=== PATIENT | male | born 1960 | race Caucasian/White ===

== ENCOUNTER → 2018-09-16 | Outpatient (REF) | payer MEDICARE, OTHER ==
[~2018-09-16] MED LIST: CYCL10TA PO; FOLI1TAB11 PO; HYDR-3716 PO; KEPP250T5 PO; MILK140C PO; MUSC1CRE TOP; NAPR1TAB41 PO; OXAZ15CA4 PO; PARO20TA3 PO; THIA100T7 PO; VITMTA PO
[2018-09-16 19:26] LABS: HEMATOCRIT 40.8 % (42.0-52.0); HEMOGLOBIN 14.2 g/dl (13.5-17.5); MEAN CORPUSCULAR HEMOGLOBIN 36.5 pg (27.0-33.0); MEAN CORPUSCULAR HGB CONC 34.8 g/dl (32.0-36.5); MEAN CORPUSCULAR VOLUME 104.9 fl (80.0-96.0); PLATELET COUNT, AUTOMATED 143 10^3/uL (150-450); RED BLOOD COUNT 3.89 10^6/uL (4.30-6.10); WHITE BLOOD COUNT 4.3 10^3/uL (4.0-10.0)
[2018-09-16 19:37] LABS: HEMOGLOBIN A1c 5.3 %
[2018-09-17 07:25] LABS: ALBUMIN 4.4 GM/DL (3.2-5.2); ALT/SGPT 73 U/L (12-78); BILIRUBIN,TOTAL 1.2 MG/DL (0.2-1.0); BLOOD UREA NITROGEN 10 MG/DL (7-18); CALCIUM LEVEL 9.2 MG/DL (8.8-10.2); CARBON DIOXIDE LEVEL 26 MEQ/L (21-32); CHLORIDE LEVEL 99 MEQ/L (98-107); CHOLESTEROL LEVEL 237 MG/DL (<200); CHOLESTEROL RISK RATIO 4.937 (<5); FERRITIN 907 NG/ML (26-388); FREE T4 0.72 NG/DL (0.76-1.46); GLUCOSE, FASTING 84 MG/DL (70-100); HDL CHOLESTEROL 48 MG/DL (>40); LDL CHOLESTEROL 142 MG/DL (<100); NON-HDL-C 189 MG/DL; POTASSIUM SERUM 3.8 MEQ/L (3.5-5.1); SODIUM LEVEL 137 MEQ/L (136-145); TOTAL IRON BINDING CAPACITY 366 UG/DL (250-450); TOTAL PROTEIN 8.9 GM/DL (6.4-8.2); TRIGLYCERIDES LEVEL 233 MG/DL (<150)
[2018-09-17 07:27] LABS: IRON (FE) 182 UG/DL (65-175)
[2018-09-17 07:28] LABS: PERCENT SATURATION 49.7 % (19.7-50.0)
[2018-09-17 07:58] LABS: CREATININE FOR GFR 0.71 MG/DL (0.70-1.30)
[2018-09-17 07:59] LABS: GLOMERULAR FILTRATION RATE > 60.0 (>49)
[2018-09-18 11:00] LABS: VITAMIN B12 LEVEL 720 PG/ML (232-1245)
== END ==
LOC: M SFHCADAM 16:13
PROVIDERS: ATTEND Family Medicine
DX: F41.9 Anxiety disorder, unspecified (principal); Z14.8 Genetic carrier of other disease; D75.89 Other specified diseases of blood and blood-forming organs; K76.0 Fatty (change of) liver, not elsewhere classified

== ENCOUNTER 2019-02-04 15:22 | Emergency (ER) | payer OTHER ==
[~2019-02-04] VITALS: Ht 185.4 cm; Wt 83.2 kg
[2019-02-04] MEDS ORDERED: ONDANSETRON 4MG/2ML VIAL (J2405) IV ONE (15:45)
[2019-02-04] MEDS ORDERED: NS 1,000 ML IV ONE (15:45)
[2019-02-04] MEDS ORDERED: MORPHINE 4 MG/ML 1ML VIAL/SYRINGE (J2270) IV ONE (15:45)
[2019-02-04 16:06] LABS: BASO # 0.1 10^3/uL (0.0-0.2); EOS % 0.2 % (0.0-3.0); HEMATOCRIT 38.7 % (42.0-52.0); HEMOGLOBIN 13.5 g/dl (13.5-17.5); LYMPH # 1.1 10^3/uL (1.5-4.5); LYMPH % 20.4 % (24.0-44.0); MEAN CORPUSCULAR HEMOGLOBIN 37.7 pg (27.0-33.0); MEAN CORPUSCULAR HGB CONC 34.9 g/dl (32.0-36.5); MEAN CORPUSCULAR VOLUME 108.1 fl (80.0-96.0); MONO # 0.5 10^3/uL (0.0-0.8); MONO % 10.1 % (0.0-5.0); NEUTROPHILS # 3.5 10^3/uL (1.8-7.7); NEUTROPHILS % 68.1 % (36.0-66.0); PLATELET COUNT, AUTOMATED 143 10^3/uL (150-450); RED BLOOD COUNT 3.58 10^6/uL (4.30-6.10); WHITE BLOOD COUNT 5.1 10^3/uL (4.0-10.0)
[2019-02-04 16:17] LABS: INR 1.25; PROTHROMBIN TIME 15.9 SECONDS (12.1-14.4)
[2019-02-04 16:18] LABS: PARTIAL THROMBOPLASTIN TIME 34.3 SECONDS (25.4-37.6)
[2019-02-04 16:30] LABS: ALT/SGPT 79 U/L (12-78); AMYLASE 76 U/L (25-115); BILIRUBIN,DIRECT 0.4 MG/DL (0.0-0.2); BILIRUBIN,TOTAL 0.9 MG/DL (0.2-1.0); BLOOD UREA NITROGEN 7 MG/DL (7-18); CARBON DIOXIDE LEVEL 26 MEQ/L (21-32); CHLORIDE LEVEL 101 MEQ/L (98-107); CK-MB VALUE MASS 4.7 NG/ML (<3.6); CPK CREATINE PHOSPHOKINASE 599 U/L (39-308); CREATININE FOR GFR 0.66 MG/DL (0.70-1.30); ETHYL ALCOHOL (ETHANOL) 0.106 % (0.000-0.010); GLOMERULAR FILTRATION RATE > 60.0 (>49); GLUCOSE, FASTING 97 MG/DL (70-100); LIPASE 234 U/L (73-393); MB/CK RELATIVE INDEX 0.78 (< OR =4); POTASSIUM SERUM 4.1 MEQ/L (3.5-5.1); SODIUM LEVEL 139 MEQ/L (136-145); TOTAL PROTEIN 8.5 GM/DL (6.4-8.2); TROPONIN I < 0.02 NG/ML (< 0.10)
[2019-02-04] MEDS ORDERED: ISOVUE-370 76% 100ML VIAL (Q9967) As Ordered ONE (16:31)
--- NOTE | 2019-02-04 16:57 | REP ---
AP lateral left hip AP pelvis and three views History: Trauma There is a fracture of the left femoral neck. There is lateral displacement of the distal fracture fragment. There is no dislocation. There is mild narrowing of the hip joint spaces. Impression: Fracture of the left femoral neck. Electronically Signed by Manan Ramirez MD 02/04/2019 04:49 P
[2019-02-04] MEDS ORDERED: LORazepam 2 MG/ML VIAL (J2060) IV STA (17:20)
[2019-02-04] MEDS ORDERED: PROBCAP14 PO (17:41)
[2019-02-04] MEDS ORDERED: ALEV220T22 PO (17:41)
[2019-02-04] MEDS ORDERED: CENT1TAB PO (17:41)
[2019-02-04] MEDS ORDERED: RA M10TA PO (17:41)
[2019-02-04] MEDS ORDERED: CITA10TA6 PO (17:41)
--- NOTE | 2019-02-04 18:16 | REP ---
HISTORY: Trauma. COMPARISON: 11/30/2015 The ventricles and sulci are unchanged. The deep cerebral white matter is unchanged. There is no shift of the midline structures. In the region of the quadrigeminal plate cistern on the right there is an area of increased density abutting the tentorium. This represents a change from the prior exam. There are no other significant changes from the prior exam. IMPRESSION: Possible small peritentorial hemorrhage in the region of the right quadrigeminal plate cistern. Followup is recommended. A phone call was placed to the emergency department and this finding was discussed with Jaylen Macias, the patient's healthcare provider. Electronically Signed by Devan Ibanez DO 02/04/2019 07:06 P
--- NOTE | 2019-02-04 18:19 | REP ---
HISTORY: Pain in the neck. COMPARISON: None. Vertebral body height and alignment is within normal limits. There is posterior disc space narrowing at every level. Anterior and posterior osteophytic ridging is seen at every level. Degenerative facet and uncovertebral joint changes are present at every level bilaterally. There is no evidence of an acute fracture. There is no abnormal paraspinal soft tissue swelling. IMPRESSION: Chronic changes. Electronically Signed by Devan Ibanez DO 02/04/2019 07:06 P
--- NOTE | 2019-02-04 18:22 | REP ---
HISTORY: Chest pain after trauma. COMPARISON: None. CONTRAST: 100 mL [id number] There is no mediastinal or hilar adenopathy. There are no pleural or pericardial effusions. The images upper abdomen is within normal limits. The imaged osseous structures show multiple healed right-sided rib fractures. Evaluation of the lung perez shows bibasilar subsegmental atelectatic changes. In the left lower lobe abutting the major fissure there is a 6 mm sized nodule. No other abnormal nodules, masses or opacities are present. IMPRESSION: There is a 6 mm sized nodule in the left lower lobe. According to the revised Axel Society criteria 3 month followup is recommended as the lesion represents category 4A lesion. Electronically Signed by Devan Ibanez DO 02/04/2019 07:06 P
[2019-02-04] MEDS ORDERED: NS 1,000 ML IV SCH (18:30)
[2019-02-04 18:35] LABS: AMPHETAMINES LEVEL URINE NEGATIVE (NEGATIVE); BARBITURATES URINE NEGATIVE (NEGATIVE); BENZODIAZEPINES URINE NEGATIVE (NEGATIVE); CANNABINOIDS URINE NEGATIVE (NEGATIVE); COCAINE METABOLITE URINE NEGATIVE (NEGATIVE); METHADONE URINE NEGATIVE (NEGATIVE); OPIATES URINE POSITIVE (NEGATIVE); PHENCYCLIDINE URINE NEGATIVE (NEGATIVE)
[2019-02-04 18:43] VITALS: BP 152/82
--- NOTE | 2019-02-04 18:56 | REPVR ---
EXAM: CT Abdomen and Pelvis Without Contrast EXAM DATE/TIME: 02/04/2019 5:58 PM CLINICAL HISTORY: 58 years old, male; Injury or trauma; Fall; Initial encounter; Blunt; Generalized; Injury date: 02/04/2019; Additional info: Trauma, hematuria TECHNIQUE: Imaging protocol: Axial computed tomography images of the abdomen and pelvis without contrast. Coronal and sagittal reformatted images were created and reviewed. Radiation optimization: All CT scans at this facility use at least one of these dose optimization techniques: automated exposure control; mA and/or kV adjustment per patient size (includes targeted exams where dose is matched to clinical indication); or iterative reconstruction. COMPARISON: No relevant prior studies available. FINDINGS: Lungs: There is bibasilar compressive atelectasis. ABDOMEN: Liver: Normal. No mass. Gallbladder and bile ducts: Normal. No calcified stones. No ductal dilation. Pancreas: Normal. No ductal dilation. Spleen: Normal. No splenomegaly. Adrenals: Normal. No mass. Kidneys and ureters: Normal. No hydronephrosis. Stomach and bowel: Duodenal diverticulum. Mild diverticulosis is present in the distal colon. No diverticulitis. Appendix: No evidence of appendicitis. PELVIS: Bladder: Mild thickening of the bladder wall likely related to changes of bladder outlet obstruction. Clinical correlation to exclude cystitis suggested. Reproductive: The prostate gland demonstrates mild hyperplasia. ABDOMEN and PELVIS: Intraperitoneal space: Normal. No free air. No significant fluid collection. Bones/joints: Mild central spinal stenosis at L2-3, moderate central spinal stenosis at L3-4 and L4-5. The spine demonstrates mild degenerative changes. Age-indeterminate rib fracture right sixth rib. Dextroconvex scoliosis. Soft tissues: Asymmetric enlargement of the left rectus femoris muscle. Muscle is surrounded by inflammatory changes. Findings may indicate the presence of acute injury including intramuscular hematoma however infection is not excluded. Small umbilical hernia. Vasculature: The aorta demonstrates mild atherosclerotic calcification. Lymph nodes: Normal. No enlarged lymph nodes. Other findings: Osteoporosis. IMPRESSION: 1. Mild prostatic hyperplasia. 2. Asymmetric enlargement of the left rectus femoris muscle. Muscle is surrounded by inflammatory changes. Findings may indicate the presence of acute injury including intramuscular hematoma however infection is not excluded. 3. Mild diverticulosis is present in the distal colon. No diverticulitis. Electronically signed by: Cesar Park On 02/04/2019 18:55:42 PM
--- NOTE | 2019-02-05 08:19 | ED PDOC ---
Post-Departure Follow-Up dr tobias faxed formal report of ct chest for fu Rajendra Sarabia MD Feb 05, 2019 08:19
--- NOTE | 2019-02-05 13:15 | ECGEPIP ---
[facility] - ED Test Date: 2019-02-04 Pat Name: BRYAN MARTINEZ Department: Room: - Gender: Male Spirits Model: TC : 1960 Requested By: AVIVA SZYMANSKI PA-C. Order Number: [id number] Reading MD: Aidan Denny Measurements Intervals [place] Rate: 75 P: 66 NC: 159 QRS: 29 QRSD: 94 T: 65 QT: 373 QTc: 417 Interpretive Statements SINUS RHYTHM WITH MARKED SINUS ARRHYTHMIA POSSIBLE INCOMPLETE RIGHT BUNDLE BRANCH BLOCK SIMILAR TO 11/29/15 Electronically Signed on 02-05-2019 13:15:41 EDT by Aidan Denny
== END 2019-02-04 18:45 | disposition short-term general hospital (02) ==
LOC: EDBD 15:22 → M ED 15:22
DX: F10.10 Alcohol abuse, uncomplicated (principal); Y90.0 Blood alcohol level of less than 20 mg/100 ml; I62.9 Nontraumatic intracranial hemorrhage, unspecified; S72.002A Fracture of unspecified part of neck of left femur, initial encounter for closed fracture; W10.8XXA Fall (on) (from) other stairs and steps, initial encounter; Y92.018 Other place in single-family (private) house as the place of occurrence of the external cause
CPT/HCPCS: 70450; 71260; 72125; 73502; 74176; 80048; 80076; 80307; 81001; 82150; 82550; 82553; 83605; 83690; 84484; 85025; 85610; 85730; 86850; 86900; 86901; 87086; 93005; 93041; 94760; 96361; 96374; 96375; 99285; G0480; J2060; J2270; J2405; Q9967

== ENCOUNTER 2019-02-22 09:55 | Observation (INO) | payer OTHER ==
[~2019-02-22] VITALS: Ht 185.4 cm; Wt 81.9 kg
[~2019-02-22 09:55] MED LIST changes: +ALEV220T22 PO; +CENT1TAB PO; +CITA10TA6 PO; +PROBCAP14 PO; +RA M10TA PO
[2019-02-22 10:08] LABS: BASO # 0.1 10^3/uL (0.0-0.2); BASO % 1.8 % (0.0-1.0); EOS # 0.2 10^3/uL (0.0-0.50); EOS % 3.6 % (0.0-3.0); HEMATOCRIT 38.4 % (42.0-52.0); HEMOGLOBIN 12.8 g/dl (13.5-17.5); LYMPH % 36.4 % (24.0-44.0); MEAN CORPUSCULAR HGB CONC 33.3 g/dl (32.0-36.5); MEAN CORPUSCULAR VOLUME 104.9 fl (80.0-96.0); MONO # 0.6 10^3/uL (0.0-0.8); MONO % 11.1 % (0.0-5.0); NEUTROPHILS # 2.6 10^3/uL (1.8-7.7); NEUTROPHILS % 46.7 % (36.0-66.0); PLATELET COUNT, AUTOMATED 309 10^3/uL (150-450); RED BLOOD COUNT 3.66 10^6/uL (4.30-6.10); WHITE BLOOD COUNT 5.6 10^3/uL (4.0-10.0)
[2019-02-22] MEDS ORDERED: ENOX40IN3 SC (10:09)
[2019-02-22 10:19] LABS: INR 1.27; PROTHROMBIN TIME 15.6 SECONDS (11.8-14.0)
[2019-02-22 10:20] LABS: PARTIAL THROMBOPLASTIN TIME 33.1 SECONDS (25.0-38.4)
[2019-02-22] MEDS ORDERED: NS 500 ML IV ONE (10:30)
[2019-02-22 10:35] LABS: BLOOD UREA NITROGEN 11 MG/DL (7-18); CALCIUM LEVEL 8.9 MG/DL (8.8-10.2); CARBON DIOXIDE LEVEL 26 MEQ/L (21-32); CHLORIDE LEVEL 105 MEQ/L (98-107); CPK CREATINE PHOSPHOKINASE 40 U/L (39-308); CREATININE FOR GFR 0.78 MG/DL (0.70-1.30); FREE T4 0.95 NG/DL (0.76-1.46); GLOMERULAR FILTRATION RATE > 60.0 (>49); GLUCOSE, FASTING 108 MG/DL (70-100); POTASSIUM SERUM 4.3 MEQ/L (3.5-5.1); SODIUM LEVEL 137 MEQ/L (136-145); TROPONIN I < 0.02 NG/ML (< 0.10)
--- NOTE | 2019-02-22 10:53 | REP ---
Clinical: Syncope. Technique: AP and lateral views of the chest. Findings: Mediastinum and cardiac silhouette normal. Lung perez demonstrate chronic-appearing interstitial changes. No focal consolidation, effusion, or pneumothorax. Skeletal structures demonstrate osteopenia and degenerative changes as well as old compression deformity at T9 corroborated by CT dated 12/01/2015. Impression: No acute cardiopulmonary process appreciated. Electronically Signed by Riki Sexton MD 02/22/2019 10:45 A
--- NOTE | 2019-02-22 11:40 | REP ---
Clinical: Syncope. Seizure . Comparison: 02/04/2019 . Findings: The ventricles, sulci, and cisterns are normal in position and appearance. Aguila-white differentiation is maintained. No acute intracranial hemorrhage, mass/mass effect, pathology or trauma/injury. No evidence for acute infarction. No extra-axial fluid collection. Calvarium is intact. Paranasal sinuses and mastoid air cells are clear. Previously identified small focus of hemorrhage adjacent to the right quadrigeminal plate cistern appears to have resolved. Impression: No evidence for acute intracranial pathology or trauma/injury. Electronically Signed by Riki Sexton MD 02/22/2019 11:31 A
[2019-02-22] MEDS ORDERED: NS 1,000 ML IV ONE (12:00)
[2019-02-22 12:45] LABS: FREE THYROXINE INDEX 2.7 % (1.4-3.8); T UPTAKE 32 % (33-40); THYROXINE (T4) 8.5 UG/DL (4.5-12.0)
[2019-02-22 12:54] LABS: PROLACTIN 29.5 NG/ML (2.1-17.7)
[2019-02-22] MEDS: MULTIVITAMINS/MINERALS THERAP 1 TAB PO SCH (13:19)
[2019-02-22] MEDS: LACTOBACILLUS ACIDOPHILUS CAP (BACID) PO SCH (13:19)
[2019-02-22 13:55] LABS: AMPHETAMINES LEVEL URINE NEGATIVE (NEGATIVE); BARBITURATES URINE NEGATIVE (NEGATIVE); BENZODIAZEPINES URINE NEGATIVE (NEGATIVE); CANNABINOIDS URINE NEGATIVE (NEGATIVE); COCAINE METABOLITE URINE NEGATIVE (NEGATIVE); METHADONE URINE NEGATIVE (NEGATIVE); OPIATES URINE NEGATIVE (NEGATIVE); PHENCYCLIDINE URINE NEGATIVE (NEGATIVE)
[2019-02-22 14:15] VITALS: BP 133/80
[2019-02-22] MEDS: NS 1,000 ML IV SCH ×2 (14:16→20:49)
[2019-02-22] MEDS: ENOXAPARIN 40 MG/0.4 ML SYRINGE (J1650) SC SCH (14:25)
[2019-02-22 15:53] VITALS: BP_SYST 105; BP_SYST 118; BP_SYST 119; BP_DIAS 59; BP_DIAS 62
[2019-02-22 15:55] VITALS: BP 119/59
--- NOTE | 2019-02-22 16:45 | REP ---
CAROTID ULTRASOUND: Real-time ultrasound evaluation and duplex Doppler interrogation of the extracranial carotid vasculature is performed. There is mild plaquing and narrowing in both carotid bulbs extending into the internal and external carotid arteries. Luminal narrowing is less than 50%. There is no evidence of hemodynamically significant stenosis of either internal carotid artery. Normal flow velocities are seen. The vertebral arteries demonstrate normal direction of flow. RIGHT LEFT Peak systolic velocity ICA 71.4 cm/s 65 cm/s End diastolic velocity ICA 20.8 the cm/s 20.9 cm/s Peak systolic velocity CCA 60.3 cm/s 79.5 cm/s Peak systolic velocity ECA 72.6 cm/s 44.2 cm/s ICA/CCA ratio 1.18 0.82 IMPRESSION: Bilateral luminal narrowing of the internal carotid arteries less than 50%. No evidence of hemodynamically significant stenosis. Electronically Signed by Nathan Aguila MD 02/22/2019 04:36 P
--- NOTE | 2019-02-22 19:32 | IPNPDOC ---
Date Seen The patient was seen on 02/22/19. Progress Note Per Dr. Palomares, neurologist assembler convertible top, unlikely to be seizure since pt did not have a postictal event. A negative prolactin in useful in ruling out seizure, but an elevated one is nonspecific. He recommends an EEG in any syncopal episode, but no antiseizure meds, or need for formal consultation. Call if new neurological events occur. Pt has been signed out to Radha Quintero MD assembler convertible top, Dr. Pickard at 731pm 02/22/19. VS, I&O, 24H, Fishbone Vital Signs/I&O Vital Signs Date Time Temp Pulse Resp B/P (MAP) Pulse Ox O2 Delivery O2 Flow Rate FiO2 02/22/19 15:55 98.2 63 18 119/59 (79) 98 02/22/19 13:45 Room Air Laboratory Data 24H LABS Laboratory Tests 2 02/22/19 09:50: Immature Granulocyte % (Auto) 0.4, White Blood Count 5.6, Red Blood Count 3.66L, Hemoglobin 12.8L, Hematocrit 38.4L, Mean Corpuscular Volume 104.9H, Mean Corpuscular Hemoglobin 35.0H, Mean Corpuscular Hemoglobin Concent 33.3, Red Cell Distribution Width 14.2, Platelet Count 309, Neutrophils (%) (Auto) 46.7, Lymphocytes (%) (Auto) 36.4, Monocytes (%) (Auto) 11.1H, Eosinophils (%) (Auto) 3.6H, Basophils (%) (Auto) 1.8H, Neutrophils # (Auto) 2.6, Lymphocytes # (Auto) 2.0, Monocytes # (Auto) 0.6, Eosinophils # (Auto) 0.2, Basophils # (Auto) 0.1, Nucleated Red Blood Cells % (auto) 0.0, Prothrombin Time 15.6H, Prothromb Time International Ratio 1.27, Activated Partial Thromboplast Time 33.1, Anion Gap 6L, Glomerular Filtration Rate > 60.0, Blood Urea Nitrogen 11, Creatinine 0.78, Sodium Level 137, Potassium Level 4.3, Chloride Level 105, Carbon Dioxide Level 26, Calcium Level 8.9, Total Creatine Kinase 40, Magnesium Level 2.0, Creatine Kinase MB 1.0, Creatine Kinase MB Relative Index 2.50, Troponin I < 0.02, Thyroid Stimulating Hormone (TSH) 4.010H, Free Thyroxine 0.95, Free Thyroxine I ndex 2.7, Thyroxine (T4) 8.5, Triiodothyronine (T3) Uptake 32L, Prolactin 29.5H 02/22/19 13:20: Urine Color YELLOW, Urine Appearance CLEAR, Urine pH 6.0, Urine Specific [place] 1.005, Urine Protein NEGATIVE, Urine Glucose (UA) NEGATIVE, Urine Ketones NEGATIVE, Urine Blood NEGATIVE, Urine Nitrite NEGATIVE, Urine Bilirubin NEGATIVE, Urine Urobilinogen 0.2, Urine Leukocyte Esterase NEGATIVE, Urine WBC (Auto) 0, Urine RBC (Auto) 2, Urine Hyaline Casts (Auto) 0, Urine Bacteria (Au to) NEGATIVE, Urine Squamous Epithelial Cells 0, Urine Mucus (Auto) SMALL, Urine Sperm (Auto) , Urine Amphetamines Screen NEGATIVE, Urine Benzodiazepines Screen NEGATIVE, Urine Opiates Screen NEGATIVE, Urine Methadone Screen NEGATIVE, Urine Barbiturates Screen NEGATIVE, Urine Phencyclidine Screen NEGATIVE, Urine Cocaine Metabolite Screen NEGATIVE, Urine Cannabinoids Screen NEGATIVE CBC/BMP Laboratory Tests 02/22/19 09:50 Red Blood Count 3.66 L, Mean Corpuscular Volume 104.9 H, Mean Corpuscular Hemoglobin 35.0 H, Mean Corpuscular Hemoglobin Concent 33.3, Red Cell Distributi on Width 14.2, Neutrophils (%) (Auto) 46.7, Lymphocytes (%) (Auto) 36.4, Monocytes (%) (Auto) 11.1 H, Eosinophils (%) (Auto) 3.6 H, Basophils (%) (Auto) 1.8 H, Neutrophils # (Auto) 2.6, Lymphocytes # (Auto) 2.0, Monocytes # (Auto) 0.6, Eosinophils # (Auto) 0.2, Basophils # (Auto) 0.1, Calcium Level 8.9, Total Creatine Kinase 40 FRANCISCO ANDREWS MD Feb 22, 2019 19:32
[2019-02-22 20:00] VITALS: BP_SYST 104; BP_SYST 109; BP_SYST 120; BP_DIAS 63; BP_DIAS 66; BP_DIAS 75
--- NOTE | 2019-02-22 20:33 | HPE ---
DATE OF ADMISSION: 02/22/2019 PRIMARY CARE PHYSICIAN: Dr. Julio Chew. CHIEF COMPLAINT: Dizziness, lightheadedness. HISTORY OF PRESENTING ILLNESS: This is a 58-year-old male with past medical history of transient global amnesia, grand mal seizure with normal brain MRI, history of prostate CA, fatty liver and carrier for hemachromatosis. Had a fall with a left hip fracture in January 2019 status post hemiarthroplasty at [facility]. Has been discharged on Lovenox two weeks ago and was in physical therapy today at [facility] when he felt lightheaded and dizzy. Patient asked the physical therapist to get him a wheelchair with arms on it. He felt slightly better. He did physical therapy again and did 10 repetitions on the right leg, three repetitions on the left leg. He asked for a glass of water, as he felt slightly more dizzy. At that point, he bent his head forward, closed his eyes. He was able to hear everything around him and he heard his name called three times by Wil. At that point, a rapid assessment team was called. Patient's blood pressure was noted to be 78 systolic. Per the , patient had not had any diarrhea, had been eating well at home and was drinking well yesterday, at least about 8 or 9 glasses of liquids. He cooked on the grill yesterday, using his walker, he flipped the kabobs with no problems. He had a good appetite this morning for breakfast and had some yogurt, strawberries and blueberries, which he has had for the past two weeks. According to the , during the episode today, he was noted by the physical therapist to have his leg twitching. He was brought into the emergency room, was found to be orthostatic and was given intravenous fluids, 2.5 liters, with an increase in blood pressure to 133/80. Patient had a similar episode of orthostasis while he was at [facility], where he was sent for the hip fracture. At that point, a murmur was heard. Before his orthopedic surgeon could operate, an echocardiogram was performed, the result of which is unavailable. He was also noted to become hypotensive over there, lasting for about a minute, dropping his blood pressure down to 72 and he did receive intravenous (IV) fluids at that time at [facility]. Patient denied any recent falls or head trauma. According to the , has not had any seizure-like activity at home and has been eating and drinking normally. No other sick contacts, fever or chills, neck rigidity or back pain. In the emergency room (ER), CT of the head was negative for acute intracranial hemorrhage, trauma or injury. There is a previously identified small focus of hemorrhage adjacent to the right quadrigeminal plate cistern that has resolved. A chest x-ray showed no acute cardiopulmonary process. Vascular ultrasound of the carotids showed no evidence of hemodynamically significant stenosis. EKG was sinus rhythm, ventricular rate of 58-74 on telemetry. Hospitalist service was called to admit for evaluation of patient's orthostasis and near syncopal episode. PAST MEDICAL HISTORY: 1. Traumatic brain injury. 2. Total global amnesia. 3. Recent fall sustaining left hip fracture. 4. Status post left hip hemiarthroplasty at [facility] in January,. 5. Prostate CA status post transrectal ultrasound-guided biopsy (TRUS) biopsy. 6. T9 compression fracture. 7. Fatty liver. 8. Carrier of hemachromatosis. 9. Colonoscopy 2013. 10. Anxiety, untreated. PAST SURGICAL HISTORY: 1. Appendectomy. 2. Left hip hemiarthroplasty, 01/2019, currently on Lovenox. 3. Colonoscopy. ALLERGIES: ERYTHROMYCIN, PAXIL causing insomnia and diarrhea. 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 Drinks six beers daily, but none since the hip fracture. Denies illicit drug use. FAMILY HISTORY: Father of alcoholic cirrhosis. Mother of lung cancer. REVIEW OF SYSTEMS: As per history of present illness (HPI). A 12 point system otherwise negative. PHYSICAL EXAMINATION: Temperature 98.2, pulse 63, sinus rhythm, respiratory rate 18, blood pressure 119/59, 88% on room air. GENERAL: Patient is awake, alert, oriented times three, answering questions appropriately. Face is symmetric. Pupils are round, reactive to light. Extraocular muscles are intact. Normocephalic, atraumatic. No miller signs. Anicteric sclerae. No use of accessory respiratory muscles. No jugular venous distention. No carotid bruits. Dry mucous membranes. No cervical lymphadenopathy or thyromegaly. LUNGS: Clear to auscultation. No wheezing, rales or rhonchi. HEART: S1, S2. Sinus rhythm with some sinus bradycardia. There is a 3/6 systolic ejection murmur at the apex radiating towards the carotids, slightly displaced point of maximum impulse (PMI) to the left. ABDOMEN: Soft, nontender, nondistended. Positive bowel sounds. Postop left hip with dheeraj. EXTREMITIES: No cyanosis, clubbing or pitting edema. Motor function is 5/5 times four extremities. No pronator drift. NEUROLOGICAL EXAM: Awake, alert, oriented times three. Face is symmetric. No facial asymmetry or drooping. Tongue is midline. 5/5 motor function times four extremities. No sensory disturbance. No pronator drift. LABORATORY DATA: White count 5.6, hemoglobin 12, hematocrit 38, platelet count 309. Sodium 137, potassium 4.3, chloride 105, bicarbonate 26, BUN 11, creatinine 0.78, glucose 108, calcium 8.9, magnesium 2. Prolactin is 29.5. Total CK 40. MB fraction 1. Troponin less than 0.02. TSH is 4.01. T3 uptake 32. Urine drug screen is negative. Urinalysis is negative, pH of 6, protein negative, glucose negative, ketones negative, blood negative, nitrite negative, bilirubin negative, leukocyte esterase negative, WBC zero, RBC 2, bacteria negative. ASSESSMENT AND PLAN: This is a 58-year-old male with a history of traumatic brain injury, recently had a fall, transient global amnesia, left hip fracture status post repair on Lovenox and has recently been discharged two weeks ago from [facility] for the hip fracture repair. At that time, he was evaluated both by a meeting facilitator and a neurologist, proceeded with his left hip hemiarthroplasty without any issues, has been home and was working with physical therapy when he had episodes of dizziness. Patient was found to have an elevated prolactin level with prior history of grand mal seizures in 2016. Patient is admitted to telemetry for observation for the following issues: 1. Dizziness, lightheadedness, near syncopal episode. Differential diagnosis includes orthostasis versus near syncope versus seizures in light of history of traumatic brain injury with total global amnesia and grand mal seizures. Patient has been admitted to telemetry under seizure precautions. Echocardiogram will be obtained from [facility], which was done recently, in January,. Electroencephalogram (EEG) will be performed. Dr. Cummings will be consulted, as the prolactin level was quite elevated. Patient may need antiseizure medications with Keppra this evening. Seizure precautions and aspiration precautions should seizures occur. Off telemetry for EEG in the morning. CT of the head had no acute hemorrhage despite the fact that he had been on Lovenox. He did not have any head trauma this time around while he was working with physical therapy. 2. History of transient global amnesia and grand mal seizures. Neurology has been consulted. CT of the head had no acute intracranial hemorrhage or pathology. Previous hemorrhage had resolved. Unable to obtain an MRI of the brain due to recent left hip arthroplasty. Defer to neurology if they would like to proceed with a CT angiogram of the brain. Creatinine is normal and may proceed with this. 3. History of prostate cancer status post TRUS biopsy. Patient says that he occasionally has gross hematuria when he was at [facility] in January,, but none since. He currently denies any dysuria, urgency, frequency. Urinalysis (UA) is clear with no RBCs. Outpatient followup with his urologist. 4. History of T9 compression fracture with recent fall. No acute issues and does not complain of back pain. 5. History of fatty liver. Check liver function tests and lipid panel. 6. Deep venous thrombosis (DVT) prophylaxis. Currently on Lovenox for DVT prophylaxis status post his left hip hemiarthroplasty.
[2019-02-22] MEDS: CitaloPRAM (CeleXA) 10 MG TABLET PO SCH (20:56)
--- NOTE | 2019-02-22 21:59 | ECGEPIP ---
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
[2019-02-22] MEDS: NAPROXEN 250 MG TAB PO PRN (23:54)
[2019-02-23] VITALS (8 sets, daily range): BP systolic 91–135; BP diastolic 62–94
[2019-02-23 05:45] LABS: HEMATOCRIT 32.8 % (42.0-52.0); HEMOGLOBIN 10.9 g/dl (13.5-17.5); MEAN CORPUSCULAR HEMOGLOBIN 35.6 pg (27.0-33.0); MEAN CORPUSCULAR HGB CONC 33.2 g/dl (32.0-36.5); MEAN CORPUSCULAR VOLUME 107.2 fl (80.0-96.0); PLATELET COUNT, AUTOMATED 220 10^3/uL (150-450); RED BLOOD COUNT 3.06 10^6/uL (4.30-6.10)
[2019-02-23 06:00] LABS: BLOOD UREA NITROGEN 9 MG/DL (7-18); CREATININE FOR GFR 0.69 MG/DL (0.70-1.30); GLUCOSE, FASTING 92 MG/DL (70-100)
[2019-02-23 06:01] LABS: CALCIUM LEVEL 8.7 MG/DL (8.8-10.2); CARBON DIOXIDE LEVEL 27 MEQ/L (21-32); CHLORIDE LEVEL 106 MEQ/L (98-107); GLOMERULAR FILTRATION RATE > 60.0 (>49); POTASSIUM SERUM 4.2 MEQ/L (3.5-5.1); SODIUM LEVEL 140 MEQ/L (136-145)
[2019-02-23] MEDS: ENOXAPARIN 40 MG/0.4 ML SYRINGE (J1650) SC SCH (09:00)
[2019-02-23] MEDS: LACTOBACILLUS ACIDOPHILUS CAP (BACID) PO SCH (09:00)
[2019-02-23] MEDS: MULTIVITAMINS/MINERALS THERAP 1 TAB PO SCH (09:00)
--- NOTE | 2019-02-23 09:28 | IPNPDOC ---
Subjective Date Seen The patient was seen on 02/23/19. Subjective Chief Complaint/HPI No further lightheadedness/syncope. Feels well today Constitutional: Denies: Chills, Fever Pulmonary: Denies: Dyspnea, Cough Cardiovascular: Denies: Chest Pain, Palpitations Gastrointestinal: Denies: Nausea, Vomiting, Abdominal Pain, Diarrhea, Constipation Objective Physical Examination General Exam: Positive: Alert, No Acute Distress Chest Exam: Positive: Clear to auscultation; Negative: Rales, Rhonchi Heart Exam: Positive: Rate Normal, Regular Rhythm, Murmurs (JOSE DE JESUS at apex) Telemetry: Positive: No significant arrhythmia Abdomen Exam: Positive: Normal bowel sounds, Soft; Negative: Tenderness Extremity Exam: Negative: Edema Assessment /Plan Assessment Patient seen. Last recorded orthostatic vitals demonstrated that he was orthostatic. I ordered repeat vitals this afternoon, after he returned to the floor from getting his EEG. Though asymptomatic, he remained orthostatic. Recent echo reviewed. Encouraged hydration, given IV fluids, recheck in the a.m. and likely DC if not orthostatic at that time. -- CDT Problems (1) Orthostatic hypotension Status: Acute Problem Text: Suspect Vasovagal hypotension with syncope - He was undergoing PT at the time of his symptoms - became lightheaded and then syncopal with hypotension Elevated Prolactin - non-specific. Admitting doctor spoke with Dr. Palomares from Neurology - Did not think this sounds like partial seizure, but EEG ok to get. no need for anti-seizure meds or formal Neurology consult. Await EEG today Cont IVF Get PT HSE today - If safe for d/c home, would send today with f/u with Dr. Reyna next week (2) Syncope Problem Text: see above Tele unremarkable (3) Fracture of neck of left femur Status: Chronic (4) Alcohol abuse Status: Chronic Plan/VTE VTE Prophylaxis Ordered?: Yes Disposition Probable d/c home today if safe per PT VS, I&O, 24H, Fishbone Vital Signs/I&O Vital Signs Date Time Temp Pulse Resp B/P (MAP) Pulse Ox O2 Delivery O2 Flow Rate FiO2 02/23/19 08:00 98.1 72 18 131/68 (89) 98 02/22/19 13:45 Room Air I&O- Last 24 Hours up to 6 AM 02/23/19 06:00 Intake Total 2650 ml Output Total 2700 ml Balance -50 ml Laboratory Data 24H LABS Laboratory Tests 2 02/22/19 09:50: Immature Granulocyte % (Auto) 0.4, White Blood Count 5.6, Red Blood Count 3.66L, Hemoglobin 12.8L, Hematocrit 38.4L, Mean Corpuscular Volume 104.9H, Mean Corpuscular Hemoglobin 35.0H, Mean Corpuscular Hemoglobin Concent 33.3, Red Cell Distribution Width 14.2, Platelet Count 309, Neutrophils (%) (Auto) 46.7, Lymphocytes (%) (Auto) 36.4, Monocytes (%) (Auto) 11.1H, Eosinophils (%) (Auto) 3.6H, Basophils (%) (Auto) 1.8H, Neutrophils # (Auto) 2.6, Lymphocytes # (Auto) 2.0, Monocytes # (Auto) 0.6, Eosinophils # (Auto) 0.2, Basophils # (Auto) 0.1, Nucleated Red Blood Cells % (auto) 0.0, Prothrombin Time 15.6H, Prothromb Time International Ratio 1.27, Activated Partial Thromboplast Time 33.1, Anion Gap 6L, Glomerular Filtration Rate > 60.0, Blood Urea Nitrogen 11, Creatinine 0.78, Sodium Level 137, Potassium Level 4.3, Chloride Level 105, Carbon Dioxide Level 26, Calcium Level 8.9, Total Creatine Kinase 40, Magnesium Level 2.0, Creatine Kinase MB 1.0, Creatine Kinase MB Relative Index 2.50, Troponin I < 0.02, Thyroid Stimulating Hormone (TSH) 4.010H, Free Thyroxine 0.95, Free Thyroxine Index 2.7, Thyroxine (T4) 8.5, Triiodothyronine (T3) Uptake 32L, Prolactin 29.5H 02/22/19 13:20: Urine Color YELLOW, Urine Appearance CLEAR, Urine pH 6.0, Urine Specific [place] 1.005, Urine Protein NEGATIVE, Urine Glucose (UA) NEGATIVE, Urine Ketones NEGATIVE, Urine Blood NEGATIVE, Urine Nitrite NEGATIVE, Urine Bilirubin NEGATIVE, Urine Urobilinogen 0.2, Urine Leukocyte Esterase NEGATIVE, Urine WBC (Auto) 0, Urine RBC (Auto) 2, Urine Hyaline Casts (Auto) 0, Urine Bacteria (Auto) NEGATIVE, Urine Squamous Epithelial Cells 0, Urine Mucus (Auto) SMALL, Urine Sperm (Auto) , Urine Amphetamines Screen NEGATIVE, Urine Benzodiazepines Screen NEGATIVE, Urine Opiates Screen NEGATIVE, Urine Methadone Screen NEGATIVE, Urine Barbiturates Screen NEGATIVE, Urine Phencyclidine Screen NEGATIVE, Urine Cocaine Metabolite Screen NEGATIVE, Urine Cannabinoids Screen NEGATIVE 02/23/19 05:18: Nucleated Red Blood Cells % (auto) 0.0, Anion Gap 7L, Glomerular Filtration Rate > 60.0, Blood Urea Nitrogen 9, Creatinine 0.69L, Sodium Level 140, Potassium Level 4.2, Chloride Level 106, Carbon Dioxide Level 27, Calcium Level 8.7L CBC/BMP Laboratory Tests 02/22/19 09:50 Red Blood Count 3.66 L, Mean Corpuscular Volume 104.9 H, Mean Corpuscular Hemoglobin 35.0 H, Mean Corpuscular Hemoglobin Concent 33.3, Red Cell Distribution Width 14.2, Neutrophils (%) (Auto) 46.7, Lymphocytes (%) (Auto) 36.4, Monocytes (%) (Auto) 11.1 H, Eosinophils (%) (Auto) 3.6 H, Basophils (%) (Auto) 1.8 H, Neutrophils # (Auto) 2.6, Lymphocytes # (Auto) 2.0, Monocytes # (Auto) 0.6, Eosinophils # (Auto) 0.2, Basophils # (Auto) 0.1, Calcium Level 8.9, Total Creatine Kinase 40 02/23/19 05:18 Red Blood Count 3.06 L, Mean Corpuscular Volume 107.2 H, Mean Corpuscular Hemoglobin 35.6 H, Mean Corpuscular Hemoglobin Concent 33.2, Red Cell Distribution Width 14.5, Calcium Level 8.7 L KAY REYNA PA-C Feb 23, 2019 09:28 LEMUEL BA DO Feb 23, 2019 23:38
[2019-02-23] MEDS: NS 1,000 ML IV SCH (18:25)
[2019-02-23] MEDS: NAPROXEN 250 MG TAB PO PRN (21:01)
[2019-02-23] MEDS: CitaloPRAM (CeleXA) 10 MG TABLET PO SCH (21:01)
[2019-02-24 04:00] VITALS: BP_SYST 104; BP_SYST 106; BP_SYST 114; BP_DIAS 64; BP_DIAS 70
[2019-02-24 07:58] VITALS: BP_SYST 105; BP_SYST 119; BP_SYST 124; BP_DIAS 69; BP_DIAS 72; BP_DIAS 73
[2019-02-24 08:00] VITALS: BP 119/73
[2019-02-24] MEDS: MULTIVITAMINS/MINERALS THERAP 1 TAB PO SCH (08:42)
[2019-02-24] MEDS: LACTOBACILLUS ACIDOPHILUS CAP (BACID) PO SCH (08:42)
[2019-02-24] MEDS: ENOXAPARIN 40 MG/0.4 ML SYRINGE (J1650) SC SCH (08:42)
[2019-02-24] MEDS: NS 1,000 ML IV SCH (08:43)
--- NOTE | 2019-02-24 13:36 | DS.PDOC ---
Discharge Summary General Date of Admission Feb 22, 2019 at 11:51 Date of Discharge 02/24/2019 Primary Care Physician: Julio Chew MD Attending Physician: LEMUEL BA DO Discharge Summary PROCEDURES PERFORMED DURING STAY: EEG ADMITTING DIAGNOSES: 1. Syncope 2. Orthostatic hypotension COMPLICATIONS/CHIEF COMPLAINT: Syncope. 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 Had a fall with a left hip fracture in January 2019 status post hemiarthroplasty at [facility]. He was discharged on Lovenox two weeks ago and was in physical therapy on day of admission at [facility] when he felt lightheaded and dizzy. He asked the physical therapist to get him a wheelchair with arms on it. He felt slightly better. He did physical therapy again and did 10 repetitions on the right leg, three repetitions on the left leg. He asked for a glass of water, as he felt slightly more dizzy. At that point, he bent his head forward, closed his eyes. He was able to hear everything around him and he heard his name called three times by Wil. At that point, a rapid assessment team was called. Patient's blood pressure was noted to be 78 systolic. He was brought into the emergency room, was found to be orthostatic and was given intravenous fluids, 2.5 liters, with an increase in blood pressure to 133/80. In the emergency room (ER), CT of the head was negative for acute intracranial hemorrhage, trauma or injury. A chest x-ray showed no acute cardiopulmonary process. Vascular ultrasound of the carotids showed no evidence of hemodynamically significant stenosis. EKG was sinus rhythm, ventricular rate of 58-74 on telemetry. HOSPITAL COURSE: 1. Dizziness, lightheadedness, near syncopal episode/orthostatic hypotension: Patient was admitted to the floor for observation, telemetry and rehydration with IV fluids. EEG was performed, results pending. B/P was monitored with orthostatic pressures monitored. He did have a mild orthostatic reading, however, he remained asymptomatic. Patient was much improved upon discharge. He was given a script to resume PT outpatient. He was instructed to stay well hydrated. He was educated on nonpharmacologic measures to prevent symptoms. DISCHARGE MEDICATIONS: Please see below. ALLERGIES: Please see below. PHYSICAL EXAMINATION ON DISCHARGE: VITAL SIGNS: Please see below. GENERAL: AOx3, NAD HEENT: unremarkable NECK: soft, supple, no bruits, no JVD CARDIOVASCULAR EXAMINATION:RRR RESPIRATORY EXAMINATION: CTA ABDOMINAL EXAMINATION:soft, non-tender EXTREMITIES: no edema SKIN: warm, dry NEUROLOGICAL EXAMINATION: intact LABORATORY DATA: Please see below. IMAGING: Chest X-ray: Impression: No acute cardiopulmonary process appreciated Head CT: Impression: No evidence for acute intracranial pathology or trauma/injury Duplex of Carotids: IMPRESSION: Bilateral luminal narrowing of the internal carotid arteries less than 50%. No evidence of hemodynamically significant stenosis. PROGNOSIS: Good ACTIVITY: As tolerated DIET:Regular DISCHARGE PLAN: To home with PT DISCHARGE INSTRUCTIONS: 1. F/U with PCP in one week ITEMS TO FOLLOWUP ON ON OUTPATIENT: 1. Results of EEG DISCHARGE CONDITION: Stable Vital Signs/I&Os Vital Signs Date Time Temp Pulse Resp B/P (MAP) Pulse Ox O2 Delivery O2 Flow Rate FiO2 02/24/19 08:00 97.8 59 18 119/73 (88) 97 02/22/19 13:45 Room Air I&O- Last 24 Hours up to 6 AM 02/24/19 06:00 Intake Total 6140 ml Output Total 5500 ml Balance 640 ml Discharge Medications Scheduled Citalopram Hydrobromide (Citalopram HBr) 10 Mg Tablet, 10 MG PO QHS, (Reported) Enoxaparin Sodium (Enoxaparin Sodium) 40 Mg/0.4 Ml Syringe, 40 MG SC DAILY, (Reported) Lactobacillus Acidophilus (Probiotic) 1 Each Capsule, 1 CAP PO DAILY, (Reported) Multivit-Min/FA/Lycopen/Lutein (Centrum Silver Tablet) 1 Each Tablet, 1 TAB PO DAILY, (Reported) Scheduled PRN Melatonin (Melatonin) 10 Mg Tablet, 10 MG PO QHS PRN for SLEEP, (Reported) Naproxen Sodium (Aleve) 220 Mg Tablet, 440 MG PO BID PRN for PAIN, (Reported) Allergies Coded Allergies: erythromycin base (Verified Allergy, Mild, RASH, 02/04/19) COLLINS THOMSON Feb 24, 2019 08:50
--- NOTE | 2019-02-25 07:03 | EEG ---
DATE OF EE02/23/2019 REFERRING PHYSICIAN: Dr. Julio Chew DIAGNOSIS: Transient global amnesia. History of grand mal seizure. EEG# [id number] HISTORY: The patient is a 58-year-old man with history of transient global amnesia, grand mal seizure. The patient had a syncopal episode. This EEG was done to rule out epileptic potential. He is currently taking Celexa, naproxen, Lovenox, etc. TECHNICAL DESCRIPTION: This digital EEG was recorded by 21 scalp ear and two EKG electrodes and was reviewed in bipolar and referential montages following reformatting in 10-20 international electrode placement system. INTERPRETATION: The patient was noted to be in awake and drowsy states during this EEG. Resting awake background rhythm consisted of well-formed posterior dominant rhythm with anterior/posterior gradient comprising of 9 Hz alpha activity measuring 15-40 microvolts in amplitude. Anteriorly low voltage and mixed frequency activity was noted. Attenuation of posterior dominant rhythm was seen during transition into drowsiness. No sleep was achieved. Hyperventilation could not be performed. Photic stimulation remained unremarkable. EKG revealed normal sinus rhythm. No focal, lateralizing or epileptiform abnormalities were seen. No clinical or electrographic seizures were recorded. CONCLUSION: This EEG in awake and drowsy states is within normal limits.
== END 2019-02-24 10:48 | disposition home or self-care (01) ==
LOC: M ED 09:55 → M ED INP 11:51 → M PCU 14:01
PROVIDERS: ADMIT Family Medicine; ATTEND Family Medicine
DX: I95.1 Orthostatic hypotension (principal); K76.0 Fatty (change of) liver, not elsewhere classified; F10.10 Alcohol abuse, uncomplicated; Z85.46 Personal history of malignant neoplasm of prostate; Z79.01 Long term (current) use of anticoagulants; Z79.899 Other long term (current) drug therapy; Z88.1 Allergy status to other antibiotic agents; F41.9 Anxiety disorder, unspecified; Z87.820 Personal history of traumatic brain injury
CPT/HCPCS: 36415; 70450; 71046; 80048; 80307; 81001; 82550; 82553; 83735; 84146; 84439; 84443; 84484; 85025; 85027; 85610; 85730; 93005; 93041; 93880; 94760; 95819; 96360; 96361; 96372; 97161; 99285; J1650

== ENCOUNTER → 2019-03-05 | Outpatient (REF) | payer OTHER ==
[~2019-03-05] MED LIST changes: +ENOX40IN3 SC
[2019-03-05 13:34] LABS: BASO # 0.1 10^3/uL (0.0-0.2); BASO % 1.6 % (0.0-1.0); EOS # 0.1 10^3/uL (0.0-0.50); HEMATOCRIT 42.3 % (42.0-52.0); HEMOGLOBIN 13.9 g/dl (13.5-17.5); LYMPH # 1.5 10^3/uL (1.5-4.5); LYMPH % 35.4 % (24.0-44.0); MEAN CORPUSCULAR HEMOGLOBIN 35.1 pg (27.0-33.0); MEAN CORPUSCULAR HGB CONC 32.9 g/dl (32.0-36.5); MEAN CORPUSCULAR VOLUME 106.8 fl (80.0-96.0); MONO # 0.5 10^3/uL (0.0-0.8); MONO % 12.3 % (0.0-5.0); NEUTROPHILS # 2.1 10^3/uL (1.8-7.7); NEUTROPHILS % 47.5 % (36.0-66.0); PLATELET COUNT, AUTOMATED 152 10^3/uL (150-450); RED BLOOD COUNT 3.96 10^6/uL (4.30-6.10); WHITE BLOOD COUNT 4.3 10^3/uL (4.0-10.0)
[2019-03-05 13:42] LABS: HEMATOCRIT 42.3 % (42.0-52.0)
[2019-03-05 14:14] LABS: FERRITIN 394 NG/ML (26-388); IRON (FE) 153 UG/DL (65-175); PERCENT SATURATION 44.6 % (19.7-50.0); TOTAL IRON BINDING CAPACITY 343 UG/DL (250-450); TOTAL PROTEIN 8.6 GM/DL (6.4-8.2)
[2019-03-05 14:18] LABS: VITAMIN B12 LEVEL 733 PG/ML (247-911)
[2019-03-09 11:47] LABS: ALBUMIN 4.02 GM/DL (3.29-5.55); ALBUMIN % 46.8 % (55.8-66.1); ALPHA-1-GLOBULIN % 3.7 % (2.9-4.9); ALPHA-1-GLOBULINS 0.32 GM/DL (0.17-0.41); ALPHA-2-GLOBULINS 0.79 GM/DL (0.42-0.99); ALPHA-2-GLOBULINS % 9.2 % (7.1-11.8); BETA-1-GLOBULINS 0.62 GM/DL (0.28-0.60); BETA-1-GLOBULINS % 7.2 % (4.7-7.2); BETA-2-GLOBULINS 0.78 GM/DL (0.19-0.55); BETA-2-GLOBULINS % 9.1 % (3.2-6.5); GAMMA GLOBULINS 2.06 GM/DL (0.65-1.58)
== END ==
LOC: M SFHCPLAZ 11:10
PROVIDERS: ATTEND Family Medicine
DX: D53.9 Nutritional anemia, unspecified (principal); M16.12 Unilateral primary osteoarthritis, left hip

== ENCOUNTER 2019-03-18 15:11 | Outpatient (RCR) | payer OTHER ==
--- NOTE | 2019-03-08 16:16 | NUR ---
Patient scored WFL on all portions of the CLQT. He reported that information processing took a little bit longer for him than it had previously, but this is currently not impacting his ability to function and participate in daily life. ST did not recommend cognitive linguistic therapy at this time. However, his goal is to return to work; the clinician recommended that he get a new order if he returns to work and finds that the cognitive deficits are impacting his ability to adequately perform his job. Addendum: 03/08/19 at 1618 by MERCED MARION Amended: Links added.
== END 2019-03-24 ==
LOC: M PT 15:11
PROVIDERS: ATTEND Family Medicine
DX: S06.9X0D Unspecified intracranial injury without loss of consciousness, subsequent encounter (principal); Z96.642 Presence of left artificial hip joint; W19.XXXD Unspecified fall, subsequent encounter

== ENCOUNTER 2019-04-21 07:54 | Outpatient (RCR) | payer OTHER | END 2019-04-24 | LOC: M PT 07:54 | PROVIDERS: ATTEND Family Medicine | DX: Z47.1 Aftercare following joint replacement surgery (principal); Z96.642 Presence of left artificial hip joint; S06.9X0D Unspecified intracranial injury without loss of consciousness, subsequent encounter ==

== ENCOUNTER 2019-10-31 16:04 | Emergency (ER) | payer BC, OTHER ==
[~2019-10-31] VITALS: Ht 185.4 cm; Wt 91.7 kg
[2019-10-31 16:05] VITALS: BP 148/81
[2019-10-31] MEDS ORDERED: methocarbamoL 750 MG TAB PO ONE (16:45)
[2019-10-31] MEDS ORDERED: IBUPROFEN 800 MG TAB PO ONE (16:45)
[2019-10-31] MEDS ORDERED: ROBA750T4 PO (16:47)
[2019-10-31] MEDS ORDERED: IBUP80TA PO (16:47)
== END 2019-10-31 16:57 | disposition home or self-care (01) ==
LOC: M ED 16:04
DX: M62.830 Muscle spasm of back (principal); Z79.899 Other long term (current) drug therapy; Z88.1 Allergy status to other antibiotic agents

== ENCOUNTER → 2019-11-03 | Outpatient (CLI) | payer BC ==
[~2019-11-03] MED LIST changes: +IBUP80TA PO; +ROBA750T4 PO
--- NOTE | 2019-11-03 15:26 | REP ---
CT STUDY OF THE THORACIC SPINE WITHOUT CONTRAST: HISTORY: History of prostate cancer. Thoracic spine pain. Comparison is made with CT images from CT study of the chest and abdomen February 04, 2019. CT FINDINGS: There is a wedge compression fracture deformity again noted at the T9 vertebral body level. Thoracic vertebral body heights are otherwise preserved. There is subtle retropulsion of the posterior cortex of the lower portion of the T9 vertebral body, 4 mm in dimension. This is unchanged from the February 04, 2019 study. There is no evidence of progressive loss of vertebral body height at T9. There is a Schmorl's node at the T11 involving the superior endplate which is unchanged. At T12, there is a recent collapse of the superior endplate with very slight loss of vertebral body height and some buckling of the anterior and posterior cortex. This is an interval finding since the February 04, 2019 study. The fracture does not appear to involve the posterior elements. No other compression deformity is seen. At T12, there is less than 10% loss of anterior vertebral body height. No disc protrusion or paravertebral soft-tissue mass or hematoma. IMPRESSION: 1. Recent wedge compression fracture deformity with collapse of the superior endplate at the T12 vertebral body level. Less than 10% loss of anterior vertebral body height. No posterior element involvement. 2. Old wedge compression deformity at T9 unchanged from February 04, 2019. No evidence to suggest skeletal metastatic disease. Electronically Signed by Parmjit Ruiz MD 11/03/2019 04:52 P
== END ==
LOC: M RAD 13:56
PROVIDERS: ATTEND Family Medicine
DX: M54.6 Pain in thoracic spine (principal); Z85.46 Personal history of malignant neoplasm of prostate; M48.54XA Collapsed vertebra, not elsewhere classified, thoracic region, initial encounter for fracture

== ENCOUNTER → 2019-11-03 | Outpatient (CLI) | payer BC ==
--- NOTE | 2019-11-04 03:30 | REP ---
Clinical: thoracic pain. Technique: AP, lateral, and swimmers views. Findings: Lateral view best demonstrates compression deformity at T9 with approximately 50% loss of vertebral body height as well as mild compression deformity along superior endplate of T12 with roughly 10-15% loss of superior vertebral body height. Alignment is maintained. Impression: Compression deformities involving T9 and T12. Electronically Signed by Riki Sexton MD 11/04/2019 03:21 A
== END ==
LOC: M ADAMS 12:02
PROVIDERS: ATTEND Family Medicine
DX: M54.6 Pain in thoracic spine (principal); Z85.46 Personal history of malignant neoplasm of prostate

== ENCOUNTER → 2019-11-16 | Outpatient (REF) | payer BC ==
[2019-11-16 19:21] LABS: ALBUMIN 3.8 GM/DL (3.2-5.2); ALT/SGPT 97 U/L (12-78); AMYLASE 68 U/L (25-115); BILIRUBIN,TOTAL 0.9 MG/DL (0.2-1.0); BLOOD UREA NITROGEN 6 MG/DL (7-18); CALCIUM LEVEL 8.9 MG/DL (8.8-10.2); CARBON DIOXIDE LEVEL 28 MEQ/L (21-32); CHLORIDE LEVEL 101 MEQ/L (98-107); CREATININE FOR GFR 0.59 MG/DL (0.70-1.30); GLOMERULAR FILTRATION RATE > 60.0 (>49); GLUCOSE, FASTING 94 MG/DL (70-100); LIPASE 321 U/L (73-393); POTASSIUM SERUM 4.2 MEQ/L (3.5-5.1); SODIUM LEVEL 136 MEQ/L (136-145); TOTAL PROTEIN 8.8 GM/DL (6.4-8.2)
[2019-11-16 19:38] LABS: HEMATOCRIT 43.7 % (42.0-52.0); HEMOGLOBIN 14.9 g/dl (13.5-17.5); MEAN CORPUSCULAR HEMOGLOBIN 35.7 pg (27.0-33.0); MEAN CORPUSCULAR HGB CONC 34.1 g/dl (32.0-36.5); MEAN CORPUSCULAR VOLUME 104.8 fl (80.0-96.0); PLATELET COUNT, AUTOMATED 114 10^3/uL (150-450); RED BLOOD COUNT 4.17 10^6/uL (4.30-6.10); WHITE BLOOD COUNT 4.3 10^3/uL (4.0-10.0)
== END ==
LOC: M SFHCADAM 15:49
PROVIDERS: ATTEND Family Medicine
DX: R10.84 Generalized abdominal pain (principal)

== ENCOUNTER → 2019-11-18 | Outpatient (CLI) | payer BC | LOC: M OUTALCOH 07:56 | PROVIDERS: ATTEND Psychiatry & Neurology Addiction Medicine | DX: Z13.39 Encounter for screening examination for other mental health and behavioral disorders (principal); F10.20 Alcohol dependence, uncomplicated ==

== ENCOUNTER 2019-12-06 19:01 | Emergency (ER) | payer BC ==
[~2019-12-06] VITALS: Ht 185.4 cm; Wt 86.4 kg
[2019-12-06 19:01] VITALS: BP 123/67
[~2019-12-06 19:01] MED LIST changes: +CYCL-707 PO; -CYCL10TA PO
[2019-12-06] MEDS ORDERED: MULTCAP PO (19:08)
== END 2019-12-06 19:57 | disposition home or self-care (01) ==
LOC: M ED 19:01
DX: L73.1 Pseudofolliculitis barbae (principal); Z79.899 Other long term (current) drug therapy; Z88.1 Allergy status to other antibiotic agents

== ENCOUNTER → 2019-12-23 | Outpatient (RCR) | payer BC ==
[~2019-12-23] MED LIST changes: +MULTCAP PO
== END ==
LOC: M OUTALCOH 11-24 10:45
PROVIDERS: ATTEND Psychiatry & Neurology Addiction Medicine
DX: F10.20 Alcohol dependence, uncomplicated (principal); F17.200 Nicotine dependence, unspecified, uncomplicated

== ENCOUNTER → 2020-01-03 | Outpatient (CLI) | payer BC ==
[2020-01-03 10:23] LABS: HEMATOCRIT 43.6 % (42.0-52.0); HEMOGLOBIN 14.6 g/dl (13.5-17.5); MEAN CORPUSCULAR HEMOGLOBIN 35.4 pg (27.0-33.0); MEAN CORPUSCULAR HGB CONC 33.5 g/dl (32.0-36.5); MEAN CORPUSCULAR VOLUME 105.6 fl (80.0-96.0); PLATELET COUNT, AUTOMATED 154 10^3/uL (150-450); RED BLOOD COUNT 4.13 10^6/uL (4.30-6.10); WHITE BLOOD COUNT 4.4 10^3/uL (4.0-10.0)
[2020-01-03 10:57] LABS: ALBUMIN 3.6 GM/DL (3.2-5.2); BILIRUBIN,DIRECT 0.2 MG/DL (0.0-0.2); BILIRUBIN,TOTAL 0.5 MG/DL (0.2-1.0); PERCENT SATURATION 32.2 % (19.7-50.0); TOTAL PROTEIN 8.2 GM/DL (6.4-8.2)
== END ==
LOC: M LAB 09:39
PROVIDERS: ATTEND Internal Medicine Gastroenterology
DX: E83.119 Hemochromatosis, unspecified (principal)

== ENCOUNTER → 2020-01-05 | Outpatient (CLI) | payer BC ==
[2020-01-05 14:43] LABS: BLOOD UREA NITROGEN 15 MG/DL (7-18); GLOMERULAR FILTRATION RATE > 60.0 (>49)
== END ==
LOC: M LAB 13:23
PROVIDERS: ATTEND Urology
DX: C61 Malignant neoplasm of prostate (principal)

== ENCOUNTER 2020-01-19 09:30 | Outpatient (RCR) | payer BC | END 2020-01-23 | LOC: M OUTALCOH 09:30 | PROVIDERS: ATTEND Psychiatry & Neurology Addiction Medicine | DX: F10.20 Alcohol dependence, uncomplicated (principal) ==

== ENCOUNTER → 2020-02-10 | Outpatient (REF) | payer BC ==
[2020-02-10 17:40] LABS: FREE T4 0.83 NG/DL (0.76-1.46); THYROID STIMULATING HORMONE 1.51 uIU/ML (0.358-3.740)
[2020-02-11 17:51] LABS: TOTAL 25(OH) VITAMIN D 40.3 NG/ML (30.0-100.0)
[2020-02-11 17:52] LABS: PTH INTACT 44.5 PG/ML (18.5-88.0)
== END ==
LOC: M SFHCADAM 15:50
PROVIDERS: ATTEND Family Medicine
DX: S22.080D Wedge compression fracture of T11-T12 vertebra, subsequent encounter for fracture with routine healing (principal); W18.30XD Fall on same level, unspecified, subsequent encounter; Y92.9 Unspecified place or not applicable

== ENCOUNTER → 2020-02-22 | Outpatient (RCR) | payer BC | LOC: M OUTALCOH 01-24 10:54 | PROVIDERS: ATTEND Psychiatry & Neurology Addiction Medicine | DX: F10.20 Alcohol dependence, uncomplicated (principal) ==

== ENCOUNTER → 2020-03-14 | Outpatient (CLI) | payer BC ==
--- NOTE | 2020-04-12 15:25 | DEXA ---
AP SPINE L1 - L4 1.020 -1.4 -1.4 LT FEMUR TOTAL LT NECK RT FEMUR TOTAL 0.858 -1.2 -1.2 RT NECK 0.777 -1.9 -1.3 TOTAL BODY TOTAL OTHER COMMENTS: There is low bone density of the spine. There is low bone density of the right hip. FOLLOW-UP: Recommendation for the next bone density exam: 2 years. MOUSTAPHA
== END ==
LOC: M WHC 09:23
PROVIDERS: ATTEND Family Medicine
DX: S22.080D Wedge compression fracture of T11-T12 vertebra, subsequent encounter for fracture with routine healing (principal); X58.XXXD Exposure to other specified factors, subsequent encounter; M85.88 Other specified disorders of bone density and structure, other site

== ENCOUNTER 2020-03-23 09:00 | Outpatient (RCR) | payer BC | END 2020-03-24 | LOC: M OUTALCOH 09:00 | PROVIDERS: ATTEND Psychiatry & Neurology Addiction Medicine | DX: F10.20 Alcohol dependence, uncomplicated (principal) ==

== ENCOUNTER 2020-04-20 08:00 | Outpatient (RCR) | payer BC | END 2020-04-24 | LOC: M OUTALCOH 08:00 | PROVIDERS: ATTEND Psychiatry & Neurology Addiction Medicine | DX: F10.20 Alcohol dependence, uncomplicated (principal) ==

== ENCOUNTER 2020-05-19 11:30 | Outpatient (RCR) | payer BC, MEDICAID | END 2020-05-24 | LOC: M OUTALCOH 11:30 | PROVIDERS: ATTEND Psychiatry & Neurology Addiction Medicine | DX: F10.20 Alcohol dependence, uncomplicated (principal) ==

== ENCOUNTER 2020-06-21 13:30 | Outpatient (RCR) | payer BC, MEDICAID, OTHER | END 2020-06-24 | LOC: M OUTALCOH 13:30 | PROVIDERS: ATTEND Psychiatry & Neurology Addiction Medicine | DX: F10.20 Alcohol dependence, uncomplicated (principal) ==

== ENCOUNTER 2020-07-11 13:00 | Outpatient (RCR) | payer BC ==
[2020-07-25] MEDS ORDERED: OXAZ10CA3 PO (21:40)
== END 2020-07-24 ==
LOC: M OUTALCOH 13:00
PROVIDERS: ATTEND Psychiatry & Neurology Addiction Medicine
DX: F10.20 Alcohol dependence, uncomplicated (principal)

== ENCOUNTER 2020-07-25 16:20 | Emergency (ER) | payer BC, OTHER ==
[~2020-07-25] VITALS: Ht 185.4 cm; Wt 89.5 kg
[2020-07-25 16:22] VITALS: BP 139/84
[2020-07-25 17:38] LABS: BASO % 1.1 % (0.0-1.0); EOS % 1.1 % (0.0-3.0); HEMATOCRIT 40.4 % (42.0-52.0); HEMOGLOBIN 13.3 g/dl (13.5-17.5); LYMPH # 1.3 10^3/uL (1.5-5.0); MEAN CORPUSCULAR HEMOGLOBIN 34.7 pg (27.0-33.0); MEAN CORPUSCULAR HGB CONC 32.9 g/dl (32.0-36.5); MEAN CORPUSCULAR VOLUME 105.5 fl (80.0-96.0); MONO # 0.3 10^3/uL (0.0-0.8); MONO % 12.9 % (0.0-5.0); NEUTROPHILS % 34.9 % (36.0-66.0); RED BLOOD COUNT 3.83 10^6/uL (4.30-6.10); WHITE BLOOD COUNT 2.6 10^3/uL (4.0-10.0)
[2020-07-25 18:03] LABS: NEUTROPHILS # 0.9 10^3/uL (1.5-8.5); PLATELET COUNT, AUTOMATED 77 10^3/uL (150-450)
[2020-07-25 18:18] LABS: AMPHETAMINES LEVEL URINE NEGATIVE (NEGATIVE); BARBITURATES URINE NEGATIVE (NEGATIVE); BENZODIAZEPINES URINE NEGATIVE (NEGATIVE); CANNABINOIDS URINE NEGATIVE (NEGATIVE); COCAINE METABOLITE URINE NEGATIVE (NEGATIVE); METHADONE URINE NEGATIVE (NEGATIVE); OPIATES URINE NEGATIVE (NEGATIVE); PHENCYCLIDINE URINE NEGATIVE (NEGATIVE)
[2020-07-25 18:30] LABS: ACETAMINOPHEN LEVEL < 2.0 UG/ML (10.0-30.0); ALBUMIN 3.9 GM/DL (3.2-5.2); ALT/SGPT 123 U/L (12-78); BILIRUBIN,DIRECT 0.3 MG/DL (0.0-0.2); BILIRUBIN,TOTAL 0.7 MG/DL (0.2-1.0); BLOOD UREA NITROGEN 9 MG/DL (7-18); CALCIUM LEVEL 8.3 MG/DL (8.8-10.2); CARBON DIOXIDE LEVEL 28 MEQ/L (21-32); CHLORIDE LEVEL 101 MEQ/L (98-107); CREATININE FOR GFR 0.77 MG/DL (0.70-1.30); ETHYL ALCOHOL (ETHANOL) 0.343 % (0.000-0.010); GLOMERULAR FILTRATION RATE > 60.0 (>49); GLUCOSE, FASTING 108 MG/DL (70-100); MAGNESIUM LEVEL 1.8 MG/DL (1.8-2.4); POTASSIUM SERUM 3.8 MEQ/L (3.5-5.1); SALICYLATE LEVEL < 1.7 MG/DL (5.0-30.0); SODIUM LEVEL 137 MEQ/L (136-145); TOTAL PROTEIN 8.3 GM/DL (6.4-8.2)
[2020-07-25] MEDS ORDERED: OXAZ10CA3 PO (21:40)
--- NOTE | 2020-07-27 13:53 | ECGEPIP ---
[facility] - ED Test Date: 2020-07-25 Pat Name: BRYAN MARTINEZ Department: Room: - Gender: Male Cardiovascular Tech: : 1960 Requested By: RICKI BERRIOS Order Number: [id number] Reading MD: Nichelle Cuba Measurements Intervals [facility] Rate: 66 P: 60 MN: 181 QRS: 29 QRSD: 102 T: 51 QT: 378 QTc: 399 Interpretive Statements SINUS RHYTHM SIMILAR 02/22/19 Electronically Signed on 07-27-2020 13:53:51 EST by Nichelle Cuba
== END 2020-07-25 18:30 | disposition left against medical advice (07) ==
LOC: M ED 16:20
DX: Z53.9 Procedure and treatment not carried out, unspecified reason (principal); F10.10 Alcohol abuse, uncomplicated; Z79.899 Other long term (current) drug therapy; Z88.1 Allergy status to other antibiotic agents
CPT/HCPCS: 80048; 80076; 80307; 83735; 84443; 85025; 85049; 85055; 93005; 93041; 94760; 99284; G0480

== ENCOUNTER 2020-07-25 19:21 | Emergency (ER) | payer OTHER ==
[~2020-07-25] VITALS: Ht 182.9 cm; Wt 88.5 kg
[2020-07-25] MEDS ORDERED: OXAZEPAM 10 MG CAP PO ONE (20:30)
[2020-07-25 21:30] VITALS: BP 133/92
[2020-07-25] MEDS ORDERED: OXAZ10CA3 PO (21:40)
== END 2020-07-25 21:50 | disposition home or self-care (01) ==
LOC: M ED 19:21
DX: F10.10 Alcohol abuse, uncomplicated (principal); D69.6 Thrombocytopenia, unspecified; Z79.899 Other long term (current) drug therapy

== ENCOUNTER → 2020-08-03 | Outpatient (REF) | payer OTHER ==
[~2020-08-03] MED LIST changes: +OXAZ10CA3 PO
[2020-08-04 13:52] LABS: ALBUMIN 4.3 GM/DL (3.2-5.2); BILIRUBIN,DIRECT 0.4 MG/DL (0.0-0.2); BILIRUBIN,TOTAL 0.7 MG/DL (0.2-1.0); TOTAL PROTEIN 8.4 GM/DL (6.4-8.2)
== END ==
LOC: M SFHCADAM 15:23
PROVIDERS: ATTEND Family Medicine
DX: F10.10 Alcohol abuse, uncomplicated (principal); K76.0 Fatty (change of) liver, not elsewhere classified; K70.10 Alcoholic hepatitis without ascites

== ENCOUNTER → 2020-08-07 | Outpatient (REF) | payer OTHER ==
[2020-08-07 15:26] LABS: ALBUMIN 3.9 GM/DL (3.2-5.2); BILIRUBIN,DIRECT 0.3 MG/DL (0.0-0.2); BILIRUBIN,TOTAL 0.7 MG/DL (0.2-1.0); TOTAL PROTEIN 8.1 GM/DL (6.4-8.2)
== END ==
LOC: M PLALAB 10:02
PROVIDERS: ATTEND Family Medicine
DX: K70.10 Alcoholic hepatitis without ascites (principal)

== ENCOUNTER → 2020-08-24 | Outpatient (RCR) | payer OTHER | LOC: M OUTALCOH 08-02 14:32 | PROVIDERS: ATTEND Psychiatry & Neurology Addiction Medicine | DX: F10.20 Alcohol dependence, uncomplicated (principal) ==

== ENCOUNTER 2020-09-21 10:00 | Outpatient (RCR) | payer OTHER | END 2020-09-24 | LOC: M OUTALCOH 10:00 | PROVIDERS: ATTEND Psychiatry & Neurology Addiction Medicine | DX: F10.20 Alcohol dependence, uncomplicated (principal) ==

== ENCOUNTER → 2020-09-23 | Outpatient (CLI) | payer SELFPAY | LOC: M LABSMTC 08:41 | PROVIDERS: ATTEND Pediatrics | DX: Z20.822 Contact with and (suspected) exposure to COVID-19 (principal) ==

== ENCOUNTER 2020-10-19 09:00 | Outpatient (RCR) | payer OTHER | END 2020-10-22 | LOC: M OUTALCOH 09:00 | PROVIDERS: ATTEND Psychiatry & Neurology Psychiatry | DX: F10.20 Alcohol dependence, uncomplicated (principal) ==

== ENCOUNTER 2020-11-09 09:00 | Outpatient (RCR) | payer OTHER | END 2020-11-22 | LOC: M OUTALCOH 09:00 | PROVIDERS: ATTEND Psychiatry & Neurology Psychiatry | DX: F10.20 Alcohol dependence, uncomplicated (principal) ==

== ENCOUNTER 2021-02-11 15:07 | Emergency (ER) | payer OTHER ==
[~2021-02-11] VITALS: Ht 185.4 cm; Wt 88.6 kg
[2021-02-11] MEDS ORDERED: HYDR50CA2 PO (15:29)
[2021-02-11] MEDS ORDERED: IBAN150T6 PO (15:29)
--- NOTE | 2021-02-11 16:17 | REP ---
INDICATION: trauma. COMPARISON: None. TECHNIQUE: 4.5 mm contiguous transaxial sections were obtained from the skull base to the cerebral convexities with thin cuts through the posterior fossa without the administration of intravenous contrast. FINDINGS: The ventricles and sulci are consistent with the patient's age. There are no extra-axial fluid collections. There is no mass effect. The deep cerebral white matter is consistent with the patient's age. The orbital and petrous structures, cerebellopontine angles, and posterior fossa are unremarkable. The sella turcica, cavernous, and paracavernous structures are essentially unremarkable. The visualized portions of the paranasal sinuses and mastoid air cells are clear with the exception of a small amount of soft tissue density in the right maxillary sinus posteriorly partially imaged. Images of the skull base show no gross abnormality. IMPRESSION: Essentially unremarkable CT examination of the brain. Probable small right maxillary sinus mucous retention cyst. <Electronically signed by Devan Ibanez > 02/11/21 1402
--- NOTE | 2021-02-11 16:19 | REP ---
INDICATION: trauma. COMPARISON: None. TECHNIQUE: 3 mm increments reconstructed in sagittal and coronal planes using standard helical technique FINDINGS: There is a minimal amount of mucosal thickening seen in the floor of the right frontal sinus extending into the frontal ethmoid recess. There is a small right maxillary sinus mucous retention cyst and minimal mucosal thickening in the floor of the left maxillary sinus. The ostiomeatal complex is patent bilaterally. There is no acute fracture of the maxillofacial region. The cribriform plate and Janice ida are intact. The mastoid air cells are clear. IMPRESSION: No acute abnormality. Findings as described above. <Electronically signed by Devan Ibanez > 02/11/21 [id number]
[2021-02-11] MEDS ORDERED: LIDOCAINE W/EPINEPHRINE 1% 20ML VIAL SC ONE (17:30)
[2021-02-11 18:16] VITALS: BP 134/95
== END 2021-02-11 18:23 | disposition home or self-care (01) ==
LOC: M ED 15:07
DX: S01.112A Laceration without foreign body of left eyelid and periocular area, initial encounter (principal); W01.0XXA Fall on same level from slipping, tripping and stumbling without subsequent striking against object, initial encounter; Y92.016 Swimming-pool in single-family (private) house or garden as the place of occurrence of the external cause; Y93.9 Activity, unspecified; Y99.9 Unspecified external cause status; R56.9 Unspecified convulsions; F10.10 Alcohol abuse, uncomplicated; Z79.899 Other long term (current) drug therapy

== ENCOUNTER 2021-02-18 14:42 | Emergency (ER) | payer OTHER ==
[~2021-02-18] VITALS: Ht 185.4 cm; Wt 86.9 kg
[~2021-02-18 14:42] MED LIST changes: +HYDR50CA2 PO; +IBAN150T6 PO
[2021-02-18] MEDS ORDERED: NAPR-849 PO (14:48)
[2021-02-18 16:49] VITALS: BP 155/88
== END 2021-02-18 16:55 | disposition home or self-care (01) ==
LOC: M ED 14:42
DX: Z48.02 Encounter for removal of sutures (principal)

== ENCOUNTER → 2021-02-21 | Outpatient (REF) | payer OTHER ==
[~2021-02-21] MED LIST changes: +NAPR-849 PO
== END ==
LOC: M SFHCADAM 10:06
PROVIDERS: ATTEND Family Medicine
DX: Z85.46 Personal history of malignant neoplasm of prostate (principal)

== ENCOUNTER → 2021-05-30 | Outpatient (REF) | payer OTHER ==
[2021-05-30 13:16] LABS: HEMATOCRIT 44.2 % (42.0-52.0); HEMOGLOBIN 15.2 g/dl (13.5-17.5); MEAN CORPUSCULAR HGB CONC 34.4 g/dl (32.0-36.5); MEAN CORPUSCULAR VOLUME 104.7 fl (80.0-96.0); PLATELET COUNT, AUTOMATED 140 10^3/uL (150-450); RED BLOOD COUNT 4.22 10^6/uL (4.30-6.10); WHITE BLOOD COUNT 3.4 10^3/uL (4.0-10.0)
[2021-05-30 13:57] LABS: ALT/SGPT 115 U/L (12-78); BILIRUBIN,TOTAL 0.6 MG/DL (0.2-1.0); BLOOD UREA NITROGEN 8 MG/DL (7-18); CALCIUM LEVEL 9.4 MG/DL (8.8-10.2); CARBON DIOXIDE LEVEL 33 MEQ/L (21-32); CHLORIDE LEVEL 103 MEQ/L (98-107); CREATININE FOR GFR 0.76 MG/DL (0.70-1.30); GLOMERULAR FILTRATION RATE > 60.0 (>49); GLUCOSE, FASTING 91 MG/DL (70-100); POTASSIUM SERUM 4.6 MEQ/L (3.5-5.1); PROSTATIC SPECIFIC AG MONITOR 6.88 NG/ML (< 4.00); SODIUM LEVEL 141 MEQ/L (136-145); TOTAL PROTEIN 9.2 GM/DL (6.4-8.2)
== END ==
LOC: M SFHCADAM 09:14
PROVIDERS: ATTEND Family Medicine
DX: F43.23 Adjustment disorder with mixed anxiety and depressed mood (principal); F10.10 Alcohol abuse, uncomplicated; Z85.46 Personal history of malignant neoplasm of prostate

== ENCOUNTER → 2021-06-19 | Outpatient (REF) | payer OTHER ==
[2021-06-19 12:54] LABS: HEMATOCRIT 42.8 % (42.0-52.0); HEMOGLOBIN 14.2 g/dl (13.5-17.5); MEAN CORPUSCULAR HEMOGLOBIN 35.1 pg (27.0-33.0); MEAN CORPUSCULAR HGB CONC 33.2 g/dl (32.0-36.5); MEAN CORPUSCULAR VOLUME 105.9 fl (80.0-96.0); PLATELET COUNT, AUTOMATED 195 10^3/uL (150-450); RED BLOOD COUNT 4.04 10^6/uL (4.30-6.10)
[2021-06-19 13:05] LABS: INR 1.17; PROTHROMBIN TIME 15.3 SECONDS (12.7-14.5)
[2021-06-19 13:38] LABS: ALBUMIN 3.8 GM/DL (3.2-5.2); ALT/SGPT 126 U/L (12-78); BILIRUBIN,TOTAL 0.5 MG/DL (0.2-1.0); BLOOD UREA NITROGEN 7 MG/DL (7-18); CALCIUM LEVEL 9.4 MG/DL (8.8-10.2); CARBON DIOXIDE LEVEL 30 MEQ/L (21-32); CHLORIDE LEVEL 105 MEQ/L (98-107); CREATININE FOR GFR 0.66 MG/DL (0.70-1.30); FERRITIN 778 NG/ML (26-388); GLOMERULAR FILTRATION RATE > 60.0 (>49); GLUCOSE, FASTING 101 MG/DL (70-100); POTASSIUM SERUM 4.6 MEQ/L (3.5-5.1); SODIUM LEVEL 140 MEQ/L (136-145); TOTAL PROTEIN 8.4 GM/DL (6.4-8.2)
[2021-06-20 19:11] LABS: TESTOSTERONE FREE (DIRECT) 10.6 pg/mL (6.6-18.1); TRANSFERRIN 236 mg/dL (177-329)
== END ==
LOC: M SFHCADAM 09:14
PROVIDERS: ATTEND Family Medicine
DX: K76.0 Fatty (change of) liver, not elsewhere classified (principal); F10.10 Alcohol abuse, uncomplicated; Z14.8 Genetic carrier of other disease

== ENCOUNTER → 2021-06-27 | Outpatient (REF) | payer OTHER | LOC: M SFHCADAM 11:52 | PROVIDERS: ATTEND Family Medicine | DX: K76.0 Fatty (change of) liver, not elsewhere classified (principal); Z53.9 Procedure and treatment not carried out, unspecified reason ==

== ENCOUNTER → 2021-08-29 | Outpatient (REF) | payer OTHER ==
[2021-08-29 13:28] LABS: HEMATOCRIT 39.8 % (42.0-52.0); HEMOGLOBIN 13.7 g/dl (13.5-17.5); MEAN CORPUSCULAR HGB CONC 34.4 g/dl (32.0-36.5); MEAN CORPUSCULAR VOLUME 104.5 fl (80.0-96.0); RED BLOOD COUNT 3.81 10^6/uL (4.30-6.10); WHITE BLOOD COUNT 3.4 10^3/uL (4.0-10.0)
[2021-08-29 13:37] LABS: INR 1.2; PROTHROMBIN TIME 15.7 SECONDS (12.7-14.5)
[2021-08-29 13:51] LABS: ALBUMIN 3.8 GM/DL (3.2-5.2); ALT/SGPT 115 U/L (12-78); BILIRUBIN,TOTAL 1.2 MG/DL (0.2-1.0); BLOOD UREA NITROGEN 5 MG/DL (7-18); CALCIUM LEVEL 8.9 MG/DL (8.8-10.2); CARBON DIOXIDE LEVEL 31 MEQ/L (21-32); CHLORIDE LEVEL 94 MEQ/L (98-107); CREATININE FOR GFR 0.63 MG/DL (0.70-1.30); GLOMERULAR FILTRATION RATE > 60.0 (>49); GLUCOSE, FASTING 94 MG/DL (70-100); POTASSIUM SERUM 4.9 MEQ/L (3.5-5.1); SODIUM LEVEL 132 MEQ/L (136-145); TOTAL PROTEIN 8.1 GM/DL (6.4-8.2)
[2021-08-29 13:58] LABS: PLATELET COUNT, AUTOMATED 62 10^3/uL (150-450)
[2021-08-29 14:01] LABS: FOLATE 10.1 NG/ML; VITAMIN B12 LEVEL 1022 PG/ML
== END ==
LOC: M SFHCADAM 12:25
PROVIDERS: ATTEND Family Medicine
DX: F10.239 Alcohol dependence with withdrawal, unspecified (principal); G47.20 Circadian rhythm sleep disorder, unspecified type; K76.0 Fatty (change of) liver, not elsewhere classified; F10.10 Alcohol abuse, uncomplicated; Z14.8 Genetic carrier of other disease

== ENCOUNTER → 2021-08-31 | Outpatient (REF) | payer OTHER ==
[2021-08-31 17:23] LABS: HEMATOCRIT 39.7 % (42.0-52.0); HEMOGLOBIN 13.5 g/dl (13.5-17.5); MEAN CORPUSCULAR HEMOGLOBIN 36.1 pg (27.0-33.0); MEAN CORPUSCULAR VOLUME 106.1 fl (80.0-96.0); RED BLOOD COUNT 3.74 10^6/uL (4.30-6.10); WHITE BLOOD COUNT 3.7 10^3/uL (4.0-10.0)
[2021-08-31 17:25] LABS: PLATELET COUNT, AUTOMATED 68 10^3/uL (150-450)
[2021-08-31 17:47] LABS: INR 1.25; PROTHROMBIN TIME 16.1 SECONDS (12.7-14.5)
[2021-08-31 17:51] LABS: ALT/SGPT 109 U/L (12-78); BILIRUBIN,TOTAL 2.3 MG/DL (0.2-1.0); BLOOD UREA NITROGEN 10 MG/DL (7-18); CALCIUM LEVEL 9.3 MG/DL (8.8-10.2); CARBON DIOXIDE LEVEL 32 MEQ/L (21-32); CHLORIDE LEVEL 91 MEQ/L (98-107); CREATININE FOR GFR 0.76 MG/DL (0.70-1.30); GLOMERULAR FILTRATION RATE > 60.0 (>49); GLUCOSE, FASTING 96 MG/DL (70-100); POTASSIUM SERUM 4.1 MEQ/L (3.5-5.1); SODIUM LEVEL 131 MEQ/L (136-145); TOTAL PROTEIN 8.4 GM/DL (6.4-8.2)
== END ==
LOC: M SFHCADAM 14:04
PROVIDERS: ATTEND Family Medicine
DX: F10.239 Alcohol dependence with withdrawal, unspecified (principal); K76.0 Fatty (change of) liver, not elsewhere classified; Z14.8 Genetic carrier of other disease

== ENCOUNTER → 2021-09-03 | Outpatient (REF) | payer OTHER ==
[2021-09-03 15:09] LABS: HEMATOCRIT 38.1 % (42.0-52.0); MEAN CORPUSCULAR HEMOGLOBIN 36.6 pg (27.0-33.0); MEAN CORPUSCULAR HGB CONC 34.1 g/dl (32.0-36.5); MEAN CORPUSCULAR VOLUME 107.3 fl (80.0-96.0); PLATELET COUNT, AUTOMATED 110 10^3/uL (150-450); RED BLOOD COUNT 3.55 10^6/uL (4.30-6.10); WHITE BLOOD COUNT 4.9 10^3/uL (4.0-10.0)
[2021-09-03 15:24] LABS: INR 1.29; PROTHROMBIN TIME 16.5 SECONDS (12.7-14.5)
[2021-09-03 15:40] LABS: ALBUMIN 3.7 GM/DL (3.2-5.2); ALT/SGPT 82 U/L (12-78); BILIRUBIN,TOTAL 2.1 MG/DL (0.2-1.0); BLOOD UREA NITROGEN 16 MG/DL (7-18); CALCIUM LEVEL 9.1 MG/DL (8.8-10.2); CARBON DIOXIDE LEVEL 31 MEQ/L (21-32); CHLORIDE LEVEL 93 MEQ/L (98-107); CREATININE FOR GFR 0.66 MG/DL (0.70-1.30); GLOMERULAR FILTRATION RATE > 60.0 (>49); GLUCOSE, FASTING 91 MG/DL (70-100); POTASSIUM SERUM 4.6 MEQ/L (3.5-5.1); SODIUM LEVEL 129 MEQ/L (136-145); TOTAL PROTEIN 8.2 GM/DL (6.4-8.2)
== END ==
LOC: M SFHCADAM 13:34
PROVIDERS: ATTEND Family Medicine
DX: K70.10 Alcoholic hepatitis without ascites (principal)

== ENCOUNTER → 2021-09-11 | Outpatient (REF) | payer OTHER ==
[2021-09-11 16:19] LABS: HEMATOCRIT 39.6 % (42.0-52.0); HEMOGLOBIN 13.2 g/dl (13.5-17.5); MEAN CORPUSCULAR HEMOGLOBIN 36.7 pg (27.0-33.0); MEAN CORPUSCULAR HGB CONC 33.3 g/dl (32.0-36.5); PLATELET COUNT, AUTOMATED 181 10^3/uL (150-450); WHITE BLOOD COUNT 5.5 10^3/uL (4.0-10.0)
[2021-09-11 16:26] LABS: ALBUMIN 3.4 GM/DL (3.2-5.2); ALT/SGPT 120 U/L (12-78); BILIRUBIN,TOTAL 0.9 MG/DL (0.2-1.0); BLOOD UREA NITROGEN 11 MG/DL (7-18); CALCIUM LEVEL 9.1 MG/DL (8.8-10.2); CARBON DIOXIDE LEVEL 32 MEQ/L (21-32); CHLORIDE LEVEL 96 MEQ/L (98-107); CREATININE FOR GFR 0.62 MG/DL (0.70-1.30); GLOMERULAR FILTRATION RATE > 60.0 (>49); GLUCOSE, FASTING 92 MG/DL (70-100); SODIUM LEVEL 133 MEQ/L (136-145); TOTAL PROTEIN 7.9 GM/DL (6.4-8.2)
[2021-09-11 16:37] LABS: INR 1.22; PROTHROMBIN TIME 15.8 SECONDS (12.7-14.5)
== END ==
LOC: M SFHCADAM 13:36
PROVIDERS: ATTEND Family Medicine
DX: K70.30 Alcoholic cirrhosis of liver without ascites (principal)

== ENCOUNTER → 2021-10-11 | Outpatient (REF) | payer OTHER ==
[2021-10-11 16:49] LABS: ALBUMIN 3.4 GM/DL (3.2-5.2); ALT/SGPT 32 U/L (12-78); BILIRUBIN,TOTAL 0.7 MG/DL (0.2-1.0); BLOOD UREA NITROGEN 12 MG/DL (7-18); CALCIUM LEVEL 8.8 MG/DL (8.8-10.2); CARBON DIOXIDE LEVEL 31 MEQ/L (21-32); CHLORIDE LEVEL 102 MEQ/L (98-107); GLOMERULAR FILTRATION RATE > 60.0 (>49); GLUCOSE, FASTING 121 MG/DL (70-100); POTASSIUM SERUM 4.1 MEQ/L (3.5-5.1); SODIUM LEVEL 138 MEQ/L (136-145); TOTAL PROTEIN 7.7 GM/DL (6.4-8.2)
[2021-10-11 17:03] LABS: HEMATOCRIT 39.2 % (42.0-52.0); HEMOGLOBIN 13.2 g/dl (13.5-17.5); MEAN CORPUSCULAR HEMOGLOBIN 36.3 pg (27.0-33.0); MEAN CORPUSCULAR HGB CONC 33.7 g/dl (32.0-36.5); MEAN CORPUSCULAR VOLUME 107.7 fl (80.0-96.0); PLATELET COUNT, AUTOMATED 146 10^3/uL (150-450); RED BLOOD COUNT 3.64 10^6/uL (4.30-6.10); WHITE BLOOD COUNT 5.3 10^3/uL (4.0-10.0)
[2021-10-11 17:37] LABS: INR 1.16; PROTHROMBIN TIME 15.2 SECONDS (12.7-14.5)
== END ==
LOC: M SFHCADAM 14:25
PROVIDERS: ATTEND Family Medicine
DX: K70.30 Alcoholic cirrhosis of liver without ascites (principal); F41.9 Anxiety disorder, unspecified

== ENCOUNTER → 2022-04-09 | Outpatient (REF) | payer OTHER ==
[2022-04-09 16:43] LABS: HEMATOCRIT 43.5 % (42.0-52.0); HEMOGLOBIN 14.8 g/dl (13.5-17.5); MEAN CORPUSCULAR HEMOGLOBIN 36.1 pg (27.0-33.0); MEAN CORPUSCULAR VOLUME 106.1 fl (80.0-96.0); WHITE BLOOD COUNT 3.7 10^3/uL (4.0-10.0)
[2022-04-09 16:54] LABS: INR 1.13; PROTHROMBIN TIME 14.9 SECONDS (12.7-14.5)
[2022-04-09 17:01] LABS: ALBUMIN 4.3 GM/DL (3.2-5.2); ALT/SGPT 105 U/L (12-78); BILIRUBIN,TOTAL 1.1 MG/DL (0.2-1.0); BLOOD UREA NITROGEN 8 MG/DL (7-18); CALCIUM LEVEL 9.3 MG/DL (8.8-10.2); CARBON DIOXIDE LEVEL 30 MEQ/L (21-32); CHLORIDE LEVEL 97 MEQ/L (98-107); CREATININE FOR GFR 0.74 MG/DL (0.70-1.30); GLOMERULAR FILTRATION RATE > 60.0 (>49); GLUCOSE, FASTING 77 MG/DL (70-100); POTASSIUM SERUM 4.1 MEQ/L (3.5-5.1); SODIUM LEVEL 135 MEQ/L (136-145); TOTAL PROTEIN 9.3 GM/DL (6.4-8.2)
[2022-04-09 17:36] LABS: VITAMIN B12 LEVEL 535 PG/ML (247-911)
[2022-04-09 17:48] LABS: PLATELET COUNT, AUTOMATED 75 10^3/uL (150-450)
== END ==
LOC: M SFHCADAM 12:25
PROVIDERS: ATTEND Family Medicine
DX: K70.30 Alcoholic cirrhosis of liver without ascites (principal); F41.9 Anxiety disorder, unspecified; Z14.8 Genetic carrier of other disease

== ENCOUNTER → 2022-04-17 | Outpatient (REF) | payer OTHER ==
[2022-04-17 14:08] LABS: ALT/SGPT 83 U/L (12-78); BILIRUBIN,TOTAL 1.6 MG/DL (0.2-1.0); BLOOD UREA NITROGEN 9 MG/DL (7-18); CALCIUM LEVEL 9.7 MG/DL (8.8-10.2); CARBON DIOXIDE LEVEL 28 MEQ/L (21-32); CHLORIDE LEVEL 96 MEQ/L (98-107); CREATININE FOR GFR 0.69 MG/DL (0.70-1.30); GLOMERULAR FILTRATION RATE > 60.0 (>49); GLUCOSE, FASTING 98 MG/DL (70-100); POTASSIUM SERUM 4.4 MEQ/L (3.5-5.1); SODIUM LEVEL 132 MEQ/L (136-145); TOTAL PROTEIN 8.5 GM/DL (6.4-8.2)
== END ==
LOC: M SFHCADAM 09:52
PROVIDERS: ATTEND Family Medicine
DX: K70.30 Alcoholic cirrhosis of liver without ascites (principal)

== ENCOUNTER → 2022-06-18 | Outpatient (REF) | payer OTHER | LOC: M SFHCADAM 12:16 | PROVIDERS: ATTEND Family Medicine | DX: F41.9 Anxiety disorder, unspecified (principal); K70.30 Alcoholic cirrhosis of liver without ascites; K76.0 Fatty (change of) liver, not elsewhere classified ==

== ENCOUNTER → 2022-08-30 | Outpatient (CLI) | payer OTHER ==
[2022-08-30 14:27] LABS: HEMATOCRIT 40.2 % (42.0-52.0); HEMOGLOBIN 13.7 g/dl (13.5-17.5); MEAN CORPUSCULAR HEMOGLOBIN 36.6 pg (27.0-33.0); MEAN CORPUSCULAR HGB CONC 34.1 g/dl (32.0-36.5); MEAN CORPUSCULAR VOLUME 107.5 fl (80.0-96.0); RED BLOOD COUNT 3.74 10^6/uL (4.30-6.10); WHITE BLOOD COUNT 3.8 10^3/uL (4.0-10.0)
[2022-08-30 14:34] LABS: INR 1.19; PROTHROMBIN TIME 15.4 SECONDS (12.5-14.5)
[2022-08-30 14:55] LABS: ALBUMIN 3.6 G/DL (3.2-5.2); ALKALINE PHOSPHATASE 124 U/L (46-116); ALT/SGPT 74 U/L (7.0-40); AST/SGOT 228 U/L (<34); BILIRUBIN,TOTAL 1.2 MG/DL (0.3-1.2); BLOOD UREA NITROGEN 8 MG/DL (9-23); CALCIUM LEVEL 8.6 MG/DL (8.3-10.6); CARBON DIOXIDE LEVEL 27 MMOL/L (20-31); CHLORIDE LEVEL 97 MMOL/L (98-107); CREATININE FOR GFR 0.61 MG/DL (0.70-1.30); GLOMERULAR FILTRATION RATE > 60.0 (>49); GLUCOSE, FASTING 78 MG/DL (74-106); POTASSIUM SERUM 4.7 MMOL/L (3.5-5.1); SODIUM LEVEL 137 MMOL/L (136-145); TOTAL PROTEIN 8.1 G/DL (5.7-8.2)
[2022-08-30 15:00] LABS: PLATELET COUNT, AUTOMATED 58 10^3/uL (150-450)
== END ==
LOC: M PLALAB 11:39
PROVIDERS: ATTEND Family Medicine
DX: F10.10 Alcohol abuse, uncomplicated (principal); D75.89 Other specified diseases of blood and blood-forming organs; K70.30 Alcoholic cirrhosis of liver without ascites

== ENCOUNTER 2022-10-17 09:40 | Emergency (ER) | payer OTHER ==
[~2022-10-17] VITALS: Ht 185.4 cm; Wt 82.3 kg
[~2022-10-17 09:40] MED LIST changes: +FOLIC ACID 1MG TAB PO SCH; +MULTIVITAMINS/MINERALS THERAP 1 TAB PO SCH
[2022-10-17] MEDS ORDERED: CITA20TA7 (10:00)
[2022-10-17 10:29] LABS: HEMATOCRIT 36.5 % (42.0-52.0); HEMOGLOBIN 12.4 g/dl (13.5-17.5); MEAN CORPUSCULAR HEMOGLOBIN 36.8 pg (27.0-33.0); MEAN CORPUSCULAR VOLUME 108.3 fl (80.0-96.0); RED BLOOD COUNT 3.37 10^6/uL (4.30-6.10); WHITE BLOOD COUNT 4.9 10^3/uL (4.0-10.0)
[2022-10-17 10:31] LABS: PLATELET COUNT, AUTOMATED 99 10^3/uL (150-450)
[2022-10-17 10:50] LABS: AMPHETAMINES LEVEL URINE NEGATIVE (NEGATIVE); BARBITURATES URINE NEGATIVE (NEGATIVE); BENZODIAZEPINES URINE NEGATIVE (NEGATIVE); CANNABINOIDS URINE NEGATIVE (NEGATIVE); COCAINE METABOLITE URINE NEGATIVE (NEGATIVE); METHADONE URINE NEGATIVE (NEGATIVE); OPIATES URINE NEGATIVE (NEGATIVE); PHENCYCLIDINE URINE NEGATIVE (NEGATIVE)
[2022-10-17 10:53] LABS: SALICYLATE LEVEL < 3.0 MG/DL (<30)
[2022-10-17 10:54] LABS: ACETAMINOPHEN LEVEL < 2.0 UG/ML (10.0-20.0); ALBUMIN 3.1 G/DL (3.2-5.2); ALKALINE PHOSPHATASE 96 U/L (46-116); ALT/SGPT 43 U/L (7.0-40); AST/SGOT 113 U/L (<34); BILIRUBIN,DIRECT 0.4 MG/DL (<0.4); BILIRUBIN,TOTAL 0.6 MG/DL (0.3-1.2); BLOOD UREA NITROGEN 8 MG/DL (9-23); CARBON DIOXIDE LEVEL 35 MMOL/L (20-31); CHLORIDE LEVEL 104 MMOL/L (98-107); CREATININE FOR GFR 0.55 MG/DL (0.70-1.30); GLOMERULAR FILTRATION RATE > 60.0 (>49); GLUCOSE, FASTING 87 MG/DL (74-106); SODIUM LEVEL 141 MMOL/L (136-145); TOTAL PROTEIN 7.7 G/DL (5.7-8.2)
[2022-10-17 10:56] LABS: THYROID STIMULATING HORMONE 3.102 uIU/ML (0.55-4.78)
[2022-10-17 11:05] LABS: ETHYL ALCOHOL (ETHANOL) 0.392 % (0.000-0.010)
[2022-10-17] MEDS ORDERED: LORazepam 2 MG TAB PO PRN (15:30)
[2022-10-17] MEDS ORDERED: THIAMINE 100 MG TAB PO SCH (16:00)
[2022-10-18] MEDS ORDERED: OXAZ30CA2 PO (01:18)
[2022-10-18] MEDS ORDERED: OXAZEPAM 15MG CAP PO ONE (01:25)
[2022-10-18 01:30] VITALS: BP 109/72
[2022-10-18] MEDS ORDERED: ONDA4TAB6 PO (01:48)
[2022-10-18] MEDS ORDERED: ONDANSETRON 4MG ORAL DISINTEGRATING TAB PO ONE (02:00)
== END 2022-10-18 02:30 | disposition home or self-care (01) ==
LOC: M ED 09:40
DX: F10.129 Alcohol abuse with intoxication, unspecified (principal); R45.851 Suicidal ideations; Z88.1 Allergy status to other antibiotic agents; Z79.83 Long term (current) use of bisphosphonates; Z79.810 Long term (current) use of selective estrogen receptor modulators (SERMs); Z79.899 Other long term (current) drug therapy

== ENCOUNTER → 2023-07-23 | Outpatient (REF) | payer MEDICARE ==
[~2023-07-23] MED LIST changes: +CITA20TA7; -FOLIC ACID 1MG TAB PO SCH; -MULTIVITAMINS/MINERALS THERAP 1 TAB PO SCH; +ONDA4TAB6 PO; +OXAZ30CA2 PO
[2023-07-23 17:55] LABS: BASO % 0.5 % (0.0-1.0); EOS % 0.3 % (0.0-3.0); HEMATOCRIT 37.5 % (42.0-52.0); HEMOGLOBIN 13.2 g/dl (13.5-17.5); LYMPH # 0.7 10^3/uL (1.5-5.0); LYMPH % 18.4 % (24.0-44.0); MEAN CORPUSCULAR HEMOGLOBIN 37.2 pg (27.0-33.0); MEAN CORPUSCULAR HGB CONC 35.2 g/dl (32.0-36.5); MEAN CORPUSCULAR VOLUME 105.6 fl (80.0-96.0); MONO # 0.6 10^3/uL (0.0-0.8); MONO % 14.6 % (2.0-8.0); NEUTROPHILS # 2.5 10^3/uL (1.5-8.5); NEUTROPHILS % 65.9 % (36.0-66.0); RED BLOOD COUNT 3.55 10^6/uL (4.30-6.10); WHITE BLOOD COUNT 3.8 10^3/uL (4.0-10.0)
[2023-07-23 18:09] LABS: PLATELET COUNT, AUTOMATED 56 10^3/uL (150-450)
[2023-07-23 18:15] LABS: ALBUMIN 3.6 G/DL (3.2-5.2); ALKALINE PHOSPHATASE 112 U/L (46-116); ALT/SGPT 64 U/L (7.0-40); AST/SGOT 159 U/L (<34); BILIRUBIN,TOTAL 2.3 MG/DL (0.3-1.2); BLOOD UREA NITROGEN 12 MG/DL (9-23); CALCIUM LEVEL 9.1 MG/DL (8.3-10.6); CARBON DIOXIDE LEVEL 27 MMOL/L (20-31); CHLORIDE LEVEL 92 MMOL/L (98-107); CREATININE FOR GFR 0.65 MG/DL (0.70-1.30); GLOMERULAR FILTRATION RATE > 60.0 (>49); GLUCOSE, FASTING 81 MG/DL (74-106); POTASSIUM SERUM 4.6 MMOL/L (3.5-5.1); SODIUM LEVEL 129 MMOL/L (136-145); TOTAL PROTEIN 8.5 G/DL (5.7-8.2)
== END ==
LOC: M SFHCADAM 13:37
PROVIDERS: ATTEND Physician Assistant
DX: K70.30 Alcoholic cirrhosis of liver without ascites (principal); F10.239 Alcohol dependence with withdrawal, unspecified; D69.6 Thrombocytopenia, unspecified

== ENCOUNTER → 2023-08-13 | Outpatient (REF) | payer MEDICARE ==
[2023-08-13 13:08] LABS: HEMATOCRIT 37.9 % (42.0-52.0); HEMOGLOBIN 12.8 g/dl (13.5-17.5); MEAN CORPUSCULAR HEMOGLOBIN 37.1 pg (27.0-33.0); MEAN CORPUSCULAR HGB CONC 33.8 g/dl (32.0-36.5); MEAN CORPUSCULAR VOLUME 109.9 fl (80.0-96.0); PLATELET COUNT, AUTOMATED 139 10^3/uL (150-450); RED BLOOD COUNT 3.45 10^6/uL (4.30-6.10); WHITE BLOOD COUNT 6.9 10^3/uL (4.0-10.0)
[2023-08-13 13:18] LABS: INR 1.37; PROTHROMBIN TIME 16.4 SECONDS (12.5-14.5)
[2023-08-13 13:42] LABS: ALBUMIN 3.1 G/DL (3.2-5.2); ALKALINE PHOSPHATASE 113 U/L (46-116); ALT/SGPT 44 U/L (7.0-40); AST/SGOT 73 U/L (<34); BILIRUBIN,TOTAL 1.2 MG/DL (0.3-1.2); BLOOD UREA NITROGEN 17 MG/DL (9-23); CALCIUM LEVEL 9.5 MG/DL (8.3-10.6); CARBON DIOXIDE LEVEL 29 MMOL/L (20-31); CHLORIDE LEVEL 102 MMOL/L (98-107); CREATININE FOR GFR 0.74 MG/DL (0.70-1.30); GLOMERULAR FILTRATION RATE > 60.0 (>49); GLUCOSE, FASTING 72 MG/DL (74-106); IRON (FE) 155 UG/DL (65-175); PERCENT SATURATION 64.9 % (19.7-50.0); POTASSIUM SERUM 4.7 MMOL/L (3.5-5.1); SODIUM LEVEL 134 MMOL/L (136-145); TOTAL IRON BINDING CAPACITY 239 UG/DL (250-425); TOTAL PROTEIN 7.5 G/DL (5.7-8.2)
[2023-08-13 13:44] LABS: FERRITIN 410.3 NG/ML (10.5-307.3)
[2023-08-13 14:16] LABS: HEPATITIS C VIRUS ABY INDEX 0.08 INDEX (<0.8)
[2023-08-13 14:17] LABS: HEPATITIS B CORE ANTIBODY IGM NEGATIVE (NEGATIVE)
== END ==
LOC: M SFHCADAM 09:23
PROVIDERS: ATTEND Family Medicine
DX: K70.30 Alcoholic cirrhosis of liver without ascites (principal); Z14.8 Genetic carrier of other disease

== ENCOUNTER → 2023-09-24 | Outpatient (REF) | payer MEDICARE ==
[2023-09-24 16:22] LABS: MEAN CORPUSCULAR HEMOGLOBIN 36.3 pg (27.0-33.0); MEAN CORPUSCULAR HGB CONC 33.3 g/dl (32.0-36.5); MEAN CORPUSCULAR VOLUME 108.9 fl (80.0-96.0); PLATELET COUNT, AUTOMATED 119 10^3/uL (150-450); RED BLOOD COUNT 3.58 10^6/uL (4.30-6.10); WHITE BLOOD COUNT 4.2 10^3/uL (4.0-10.0)
[2023-09-24 16:35] LABS: INR 1.3; PROTHROMBIN TIME 15.8 SECONDS (12.5-14.5)
[2023-09-24 16:50] LABS: ALKALINE PHOSPHATASE 87 U/L (46-116); ALT/SGPT 19 U/L (7.0-40); AST/SGOT 31 U/L (<34); BLOOD UREA NITROGEN 9 MG/DL (9-23); CALCIUM LEVEL 9.1 MG/DL (8.3-10.6); CARBON DIOXIDE LEVEL 30 MMOL/L (20-31); CHLORIDE LEVEL 103 MMOL/L (98-107); CREATININE FOR GFR 0.69 MG/DL (0.70-1.30); GLOMERULAR FILTRATION RATE > 60.0 (>49); GLUCOSE, FASTING 92 MG/DL (74-106); IRON (FE) 202 UG/DL (65-175); PERCENT SATURATION 65.2 % (19.7-50.0); POTASSIUM SERUM 4.7 MMOL/L (3.5-5.1); SODIUM LEVEL 138 MMOL/L (136-145); TOTAL IRON BINDING CAPACITY 310 UG/DL (250-425); TOTAL PROTEIN 7.3 G/DL (5.7-8.2)
[2023-09-24 16:52] LABS: FERRITIN 188.5 NG/ML (10.5-307.3)
== END ==
LOC: M SFHCADAM 13:41
PROVIDERS: ATTEND Family Medicine
DX: K70.30 Alcoholic cirrhosis of liver without ascites (principal); Z14.8 Genetic carrier of other disease

== ENCOUNTER → 2024-02-10 | Outpatient (REF) | payer MEDICARE ==
[~2024-02-10] MED LIST changes: +ONDA-282 PO; -ONDA4TAB6 PO
[2024-02-10 17:03] LABS: HEMATOCRIT 38.3 % (42.0-52.0); HEMOGLOBIN 13.1 g/dl (13.5-17.5); MEAN CORPUSCULAR HEMOGLOBIN 36.7 pg (27.0-33.0); MEAN CORPUSCULAR HGB CONC 34.2 g/dl (32.0-36.5); MEAN CORPUSCULAR VOLUME 107.3 fl (80.0-96.0); PLATELET COUNT, AUTOMATED 104 10^3/uL (150-450); RED BLOOD COUNT 3.57 10^6/uL (4.30-6.10); WHITE BLOOD COUNT 3.9 10^3/uL (4.0-10.0)
[2024-02-10 17:15] LABS: INR 1.2; PROTHROMBIN TIME 14.9 SECONDS (12.5-14.5)
[2024-02-10 17:29] LABS: ALBUMIN 3.8 G/DL (3.2-5.2); ALKALINE PHOSPHATASE 94 U/L (46-116); ALT/SGPT 47 U/L (7.0-40); AST/SGOT 79 U/L (<34); BILIRUBIN,TOTAL 0.9 MG/DL (0.3-1.2); BLOOD UREA NITROGEN 14 MG/DL (9-23); CALCIUM LEVEL 8.9 MG/DL (8.3-10.6); CARBON DIOXIDE LEVEL 30 MMOL/L (20-31); CHLORIDE LEVEL 99 MMOL/L (98-107); CHOLESTEROL LEVEL 163 MG/DL (<200); CHOLESTEROL RISK RATIO 2.56 (<5); CREATININE FOR GFR 0.65 MG/DL (0.70-1.30); GLOMERULAR FILTRATION RATE > 60.0 (>49); GLUCOSE, FASTING 84 MG/DL (74-106); HDL CHOLESTEROL 63.6 MG/DL (>40); IRON (FE) 110 UG/DL (65-175); LDL CHOLESTEROL 83.6 MG/DL (<100); NON-HDL-C 99.4 MG/DL; PERCENT SATURATION 30.6 % (19.7-50.0); POTASSIUM SERUM 4.1 MMOL/L (3.5-5.1); SODIUM LEVEL 134 MMOL/L (136-145); TOTAL IRON BINDING CAPACITY 360 UG/DL (250-425); TOTAL PROTEIN 7.8 G/DL (5.7-8.2); TRIGLYCERIDES LEVEL 79 MG/DL (<150)
[2024-02-10 17:31] LABS: FERRITIN 126.5 NG/ML (10.5-307.3)
== END ==
LOC: M SFHCADAM 11:02
PROVIDERS: ATTEND Family Medicine
DX: D69.6 Thrombocytopenia, unspecified (principal); K70.30 Alcoholic cirrhosis of liver without ascites; Z14.8 Genetic carrier of other disease; K76.0 Fatty (change of) liver, not elsewhere classified

== ENCOUNTER → 2024-02-10 | Outpatient (CLI) | payer MEDICARE | LOC: M ADAMS 11:13 | PROVIDERS: ATTEND Family Medicine | DX: R07.81 Pleurodynia (principal); Z91.81 History of falling ==

== ENCOUNTER 2024-03-14 14:00 | Inpatient (IN) | payer MEDICARE ==
[~2024-03-14] VITALS: Ht 182.9 cm; Wt 86.6 kg
[~2024-03-14 14:00] MED LIST changes: -CITA20TA7; +CITA20TA7 PO
[2024-03-14 16:30] LABS: BASO % 0.7 % (0.0-1.0); HEMATOCRIT 40.7 % (42.0-52.0); LYMPH # 0.8 10^3/uL (1.5-5.0); LYMPH % 28.3 % (24.0-44.0); MEAN CORPUSCULAR HEMOGLOBIN 35.8 pg (27.0-33.0); MEAN CORPUSCULAR HGB CONC 34.4 g/dl (32.0-36.5); MEAN CORPUSCULAR VOLUME 104.1 fl (80.0-96.0); MONO # 0.2 10^3/uL (0.0-0.8); MONO % 7.2 % (2.0-8.0); NEUTROPHILS # 1.9 10^3/uL (1.5-8.5); NEUTROPHILS % 63.5 % (36.0-66.0); RED BLOOD COUNT 3.91 10^6/uL (4.30-6.10); WHITE BLOOD COUNT 2.9 10^3/uL (4.0-10.0)
[2024-03-14 16:47] LABS: ETHYL ALCOHOL (ETHANOL) 0.096 % (0.000-0.010); LIPASE 61 U/L (12-53)
[2024-03-14 16:49] LABS: ALBUMIN 3.8 G/DL (3.2-5.2); ALKALINE PHOSPHATASE 123 U/L (46-116); ALT/SGPT 62 U/L (7.0-40); AST/SGOT 131 U/L (<34); BILIRUBIN,DIRECT 0.6 MG/DL (<0.4); BILIRUBIN,TOTAL 1.4 MG/DL (0.3-1.2); BLOOD UREA NITROGEN 9 MG/DL (9-23); CALCIUM LEVEL 8.6 MG/DL (8.3-10.6); CARBON DIOXIDE LEVEL 27 MMOL/L (20-31); CHLORIDE LEVEL 104 MMOL/L (98-107); CREATININE FOR GFR 0.56 MG/DL (0.70-1.30); GLOMERULAR FILTRATION RATE > 60.0 (>49); GLUCOSE, FASTING 77 MG/DL (74-106); MAGNESIUM LEVEL 1.6 MG/DL (1.8-2.4); POTASSIUM SERUM 4.5 MMOL/L (3.5-5.1); SODIUM LEVEL 140 MMOL/L (136-145); TOTAL PROTEIN 7.9 G/DL (5.7-8.2)
[2024-03-14 16:51] LABS: PLATELET COUNT, AUTOMATED 45 10^3/uL (150-450)
[2024-03-14 17:11] LABS: BARBITURATES URINE NEGATIVE (NEGATIVE)
[2024-03-14 17:12] LABS: CANNABINOIDS URINE NEGATIVE (NEGATIVE); COCAINE METABOLITE URINE NEGATIVE (NEGATIVE); METHADONE URINE NEGATIVE (NEGATIVE); OPIATES URINE NEGATIVE (NEGATIVE); PHENCYCLIDINE URINE NEGATIVE (NEGATIVE)
[2024-03-14 17:13] LABS: AMPHETAMINES LEVEL URINE NEGATIVE (NEGATIVE); BENZODIAZEPINES URINE NEGATIVE (NEGATIVE)
[2024-03-14] MEDS: NS 1,000 ML IV ONE (17:16)
[2024-03-14] MEDS: MULTIVITAMINS/MINERALS THERAP 1 TAB PO SCH (17:41)
[2024-03-14] MEDS: FOLIC ACID 1MG TAB PO SCH (17:41)
[2024-03-14] MEDS: THIAMINE 100 MG TAB PO SCH (17:41)
[2024-03-14] MEDS: MAGNESIUM OXIDE 400MG TAB (MAG-OX) PO ONE (18:15)
[2024-03-14] MEDS: ONDANSETRON 4MG 2ML VIAL IV ONE (18:35)
[2024-03-14] MEDS: LORazepam 2 MG TAB PO PRN (19:17)
[2024-03-14] MEDS ORDERED: LORazepam 2 MG TAB PO PRN (19:45)
[2024-03-14] MEDS ORDERED: OXAZ30CA2 PO (20:07)
[2024-03-14] MEDS ORDERED: THERTAB52 PO (20:07)
[2024-03-14] MEDS ORDERED: HOME MED LIST COMPLETE! XX SCH (20:10)
[2024-03-14] MEDS: NS 1,000 ML IV SCH (20:16)
[2024-03-14] MEDS: chlordiazePOXIDE 25 MG CAP PO STA (20:16)
[2024-03-14] MEDS: MAG SULF 1GM/100ML (MAG RUN) 1 GM in IV 1 EA IV ONE (20:17)
[2024-03-14] MEDS: CitaloPRAM (CeleXA) 20 MG TAB PO SCH (21:32)
[2024-03-14 21:33] VITALS: BP 119/68; TEMP 99.2; O2SAT 94
[2024-03-14 23:21] VITALS: BP 125/75; TEMP 99.2; O2SAT 95
[2024-03-15 03:53] VITALS: BP 129/83; TEMP 98.3; O2SAT 93
[2024-03-15 06:07] LABS: HEMATOCRIT 35.1 % (42.0-52.0); HEMOGLOBIN 12.3 g/dl (13.5-17.5); MEAN CORPUSCULAR HEMOGLOBIN 36.2 pg (27.0-33.0); MEAN CORPUSCULAR VOLUME 103.2 fl (80.0-96.0)
[2024-03-15 06:08] LABS: PLATELET COUNT, AUTOMATED 36 10^3/uL (150-450)
[2024-03-15 06:22] LABS: INR 1.28; PROTHROMBIN TIME 15.6 SECONDS (12.5-14.5)
[2024-03-15 06:43] LABS: ALBUMIN 3.2 G/DL (3.2-5.2); ALKALINE PHOSPHATASE 110 U/L (46-116); ALT/SGPT 53 U/L (7.0-40); AST/SGOT 104 U/L (<34); BILIRUBIN,TOTAL 1.8 MG/DL (0.3-1.2); BLOOD UREA NITROGEN 11 MG/DL (9-23); CALCIUM LEVEL 8.2 MG/DL (8.3-10.6); CARBON DIOXIDE LEVEL 27 MMOL/L (20-31); CHLORIDE LEVEL 104 MMOL/L (98-107); CREATININE FOR GFR 0.58 MG/DL (0.70-1.30); GLOMERULAR FILTRATION RATE > 60.0 (>49); GLUCOSE, FASTING 86 MG/DL (74-106); MAGNESIUM LEVEL 1.6 MG/DL (1.8-2.4); POTASSIUM SERUM 4.2 MMOL/L (3.5-5.1); SODIUM LEVEL 138 MMOL/L (136-145); TOTAL PROTEIN 6.9 G/DL (5.7-8.2)
[2024-03-15 07:45] VITALS: BP 138/74; TEMP 99.1; O2SAT 96
[2024-03-15] MEDS ORDERED: ENOXAPARIN 40MG/0.4ML SYRINGE (J1650 PER 10MG) SC SCH (09:00)
[2024-03-15] MEDS: MULTIVITAMINS/MINERALS THERAP 1 TAB PO SCH (09:09)
[2024-03-15] MEDS: FOLIC ACID 1MG TAB PO SCH (09:09)
[2024-03-15] MEDS: THIAMINE 100 MG TAB PO SCH (09:09)
[2024-03-15] MEDS: MAG SULF 1GM/100ML (MAG RUN) 1 GM in IV 1 EA IV SCH (09:09)
[2024-03-15 11:14] VITALS: BP 125/64; TEMP 99.1; O2SAT 95
[2024-03-15 16:00] VITALS: BP 146/73; TEMP 99.3; O2SAT 97
[2024-03-15] MEDS: OXAZEPAM 15MG CAP PO SCH (16:15)
[2024-03-15 19:51] VITALS: BP 132/64; TEMP 98.1; O2SAT 98
[2024-03-15 23:24] VITALS: BP 128/83; TEMP 97.9; O2SAT 95
[2024-03-16 04:02] VITALS: BP 141/66; TEMP 97.4; O2SAT 96
[2024-03-16 05:25] LABS: BASO % 0.4 % (0.0-1.0); EOS # 0.1 10^3/uL (0.0-0.5); EOS % 4.3 % (0.0-3.0); HEMOGLOBIN 12.4 g/dl (13.5-17.5); LYMPH % 41.2 % (24.0-44.0); MEAN CORPUSCULAR HEMOGLOBIN 36.4 pg (27.0-33.0); MEAN CORPUSCULAR HGB CONC 34.4 g/dl (32.0-36.5); MEAN CORPUSCULAR VOLUME 105.6 fl (80.0-96.0); MONO # 0.2 10^3/uL (0.0-0.8); MONO % 10.3 % (2.0-8.0); NEUTROPHILS % 43.8 % (36.0-66.0); RED BLOOD COUNT 3.41 10^6/uL (4.30-6.10); WHITE BLOOD COUNT 2.3 10^3/uL (4.0-10.0)
[2024-03-16 05:30] LABS: PLATELET COUNT, AUTOMATED 35 10^3/uL (150-450)
[2024-03-16 05:41] LABS: ALBUMIN 3.3 G/DL (3.2-5.2); ALKALINE PHOSPHATASE 114 U/L (46-116); ALT/SGPT 47 U/L (7.0-40); AST/SGOT 76 U/L (<34); BILIRUBIN,TOTAL 1.9 MG/DL (0.3-1.2); BLOOD UREA NITROGEN 7 MG/DL (9-23); CALCIUM LEVEL 8.5 MG/DL (8.3-10.6); CARBON DIOXIDE LEVEL 27 MMOL/L (20-31); CHLORIDE LEVEL 104 MMOL/L (98-107); CREATININE FOR GFR 0.56 MG/DL (0.70-1.30); GLOMERULAR FILTRATION RATE > 60.0 (>49); GLUCOSE, FASTING 93 MG/DL (74-106); MAGNESIUM LEVEL 1.7 MG/DL (1.8-2.4); POTASSIUM SERUM 3.8 MMOL/L (3.5-5.1); SODIUM LEVEL 137 MMOL/L (136-145)
[2024-03-16 07:29] VITALS: BP 130/81; TEMP 98.9; O2SAT 97
[2024-03-16] MEDS: MAG SULF 1GM/100ML (MAG RUN) 1 GM in IV 1 EA IV SCH (08:02)
[2024-03-16] MEDS ORDERED: THERTAB52 PO (09:13)
[2024-03-16] MEDS ORDERED: FOLI1TAB11 PO (09:13)
[2024-03-16] MEDS ORDERED: THIA100TA PO (09:13)
[2024-03-16] MEDS ORDERED: MAGN400T35 PO (10:25)
== END 2024-03-16 10:40 | disposition home or self-care (01) | DRG 897 ==
LOC: M ED 14:00 → M ED INP 19:41 → M PCU 21:19
PROVIDERS: ADMIT Preventive Medicine Undersea and Hyperbaric Medicine; ATTEND Preventive Medicine Undersea and Hyperbaric Medicine
DX: F10.231 Alcohol dependence with withdrawal delirium (principal); D61.818 Other pancytopenia; F32.A Depression, unspecified; K74.60 Unspecified cirrhosis of liver; R01.1 Cardiac murmur, unspecified; E83.42 Hypomagnesemia; Z79.899 Other long term (current) drug therapy; Z88.1 Allergy status to other antibiotic agents

== ENCOUNTER 2024-07-13 17:23 | Emergency (ER) | payer MEDICARE ==
[~2024-07-13] VITALS: Ht 182.9 cm; Wt 84.2 kg
[~2024-07-13 17:23] MED LIST changes: +IBAN150T10 PO; -IBAN150T6 PO; +MAGN400T35 PO; +THERTAB52 PO; +THIA100TA PO
[2024-07-13 17:29] VITALS: BP 137/74; TEMP 97.1; O2SAT 96
== END 2024-07-13 17:58 | disposition left against medical advice (07) ==
LOC: M ED 17:23
DX: Z53.21 Procedure and treatment not carried out due to patient leaving prior to being seen by health care provider (principal)

== ENCOUNTER → 2024-07-26 | Outpatient (CLI) | payer MEDICARE ==
[2024-07-26 12:33] LABS: HEMATOCRIT 39.1 % (42.0-52.0); HEMOGLOBIN 13.4 g/dl (13.5-17.5); MEAN CORPUSCULAR HEMOGLOBIN 35.4 pg (27.0-33.0); MEAN CORPUSCULAR HGB CONC 34.3 g/dl (32.0-36.5); MEAN CORPUSCULAR VOLUME 103.4 fl (80.0-96.0); RED BLOOD COUNT 3.78 10^6/uL (4.30-6.10)
[2024-07-26 12:34] LABS: PLATELET COUNT, AUTOMATED 89 10^3/uL (150-450)
[2024-07-26 12:37] LABS: INR 1.19; PROTHROMBIN TIME 15.4 SECONDS (12.5-14.5)
[2024-07-26 12:38] LABS: ALBUMIN 3.9 G/DL (3.2-5.2); ALKALINE PHOSPHATASE 101 U/L (40-129); ALT/SGPT 53 U/L (7.0-40); AST/SGOT 70 U/L (<34); BILIRUBIN,TOTAL 1.4 MG/DL (0.3-1.2); BLOOD UREA NITROGEN 12 MG/DL (9-23); CALCIUM LEVEL 9.7 MG/DL (8.3-10.6); CARBON DIOXIDE LEVEL 29 MMOL/L (20-31); CHLORIDE LEVEL 101 MMOL/L (98-107); CHOLESTEROL LEVEL 191 MG/DL (<200); CHOLESTEROL RISK RATIO 2.84 (<5); CREATININE FOR GFR 0.69 MG/DL (0.70-1.30); GLOMERULAR FILTRATION RATE > 60.0 (>49); GLUCOSE, FASTING 118 MG/DL (74-106); HDL CHOLESTEROL 67.2 MG/DL (>40); LDL CHOLESTEROL 112.8 MG/DL (<100); NON-HDL-C 123.8 MG/DL; POTASSIUM SERUM 4.4 MMOL/L (3.5-5.1); SODIUM LEVEL 135 MMOL/L (136-145); TOTAL PROTEIN 8.5 G/DL (5.7-8.2); TRIGLYCERIDES LEVEL 55 MG/DL (<150)
[2024-07-26 13:21] LABS: HEMOGLOBIN A1c 5.1 % (4.0-6.0)
== END ==
LOC: M PLALAB 10:21
PROVIDERS: ATTEND Family Medicine
DX: R77.2 Abnormality of alphafetoprotein (principal); D61.818 Other pancytopenia; K70.30 Alcoholic cirrhosis of liver without ascites; Z13.1 Encounter for screening for diabetes mellitus; Z79.899 Other long term (current) drug therapy

== ENCOUNTER 2024-08-25 20:12 | Emergency (ER) | payer MEDICARE ==
[~2024-08-25] VITALS: Ht 185.4 cm; Wt 81.6 kg
[2024-08-25 20:16] VITALS: BP 141/83; TEMP 97.6; O2SAT 97
== END 2024-08-25 21:18 | disposition left against medical advice (07) ==
LOC: M ED 20:12
DX: Z53.21 Procedure and treatment not carried out due to patient leaving prior to being seen by health care provider (principal)

== ENCOUNTER 2024-09-04 06:21 | Inpatient (IN) | payer MEDICARE ==
[~2024-09-04] VITALS: Ht 182.9 cm; Wt 85.0 kg
[2024-09-04] MEDS: MULTIVITAMINS/MINERALS THERAP 1 TAB PO SCH (08:35)
[2024-09-04] MEDS: THIAMINE 100 MG TAB PO SCH (08:35)
[2024-09-04] MEDS: FOLIC ACID 1MG TAB PO SCH (08:35)
[2024-09-04] MEDS: KETOROLAC 60MG 2ML VIAL IM ONE (11:56)
[2024-09-04] MEDS: LORazepam 2 MG TAB PO PRN ×2 (13:02→22:35)
[2024-09-04] MEDS: LR 1,000 ML IV ONE (14:35)
[2024-09-04] MEDS ORDERED: LR 1,000 ML IV ONE (16:50)
[2024-09-04] MEDS: NS (Normal Saline) 0.9% 1,000 ML IV ONE (17:23)
[2024-09-04 17:46] LABS: BASO % 0.5 % (0.0-1.0); EOS % 0.2 % (0.0-3.0); HEMATOCRIT 33.2 % (42.0-52.0); HEMOGLOBIN 11.7 g/dl (13.5-17.5); LYMPH # 1.2 10^3/uL (1.5-5.0); LYMPH % 27.4 % (24.0-44.0); MEAN CORPUSCULAR HEMOGLOBIN 35.8 pg (27.0-33.0); MEAN CORPUSCULAR HGB CONC 35.2 g/dl (32.0-36.5); MEAN CORPUSCULAR VOLUME 101.5 fl (80.0-96.0); MONO # 0.3 10^3/uL (0.0-0.8); MONO % 7.8 % (2.0-8.0); NEUTROPHILS # 2.8 10^3/uL (1.5-8.5); NEUTROPHILS % 63.6 % (36.0-66.0); RED BLOOD COUNT 3.27 10^6/uL (4.30-6.10); WHITE BLOOD COUNT 4.4 10^3/uL (4.0-10.0)
[2024-09-04 17:49] LABS: PLATELET COUNT, AUTOMATED 64 10^3/uL (150-450)
[2024-09-04 17:56] LABS: INR 1.28; LIPASE 45 U/L (12-53); PROTHROMBIN TIME 16.3 SECONDS (12.5-14.5)
[2024-09-04 18:02] LABS: ALBUMIN 3.3 G/DL (3.2-5.2); ALKALINE PHOSPHATASE 100 U/L (40-129); ALT/SGPT 39 U/L (7.0-40); AST/SGOT 80 U/L (<34); BILIRUBIN,DIRECT 0.3 MG/DL (<0.4); BILIRUBIN,TOTAL 0.8 MG/DL (0.3-1.2); BLOOD UREA NITROGEN 13 MG/DL (9-23); CALCIUM LEVEL 8.3 MG/DL (8.3-10.6); CARBON DIOXIDE LEVEL 26 MMOL/L (20-31); CHLORIDE LEVEL 100 MMOL/L (98-107); CREATININE FOR GFR 0.62 MG/DL (0.70-1.30); GLOMERULAR FILTRATION RATE > 60.0 (>49); GLUCOSE, FASTING 74 MG/DL (74-106); POTASSIUM SERUM 4.3 MMOL/L (3.5-5.1); SODIUM LEVEL 138 MMOL/L (136-145); TOTAL PROTEIN 7.3 G/DL (5.7-8.2)
[2024-09-04] MEDS ORDERED: ACETAMINOPHEN 325 MG TAB PO PRN (19:35)
[2024-09-04] MEDS ORDERED: LORazepam 2 MG/ML 1ML VIAL IV PRN (19:35)
[2024-09-04] MEDS ORDERED: METRCRM TOP (20:12)
[2024-09-04] MEDS ORDERED: NAPR220C14 PO (20:12)
[2024-09-04] MEDS ORDERED: CLON1TAB8 PO (20:12)
[2024-09-04] MEDS ORDERED: HOME MED LIST COMPLETE! XX SCH (20:15)
[2024-09-04] MEDS: LIDOCAINE 5% (LIDODERM) PATCH TD SCH (22:16)
[2024-09-04] MEDS: clonazePAM 1 MG TAB PO SCH (22:16)
[2024-09-04] MEDS: GABAPENTIN 100 MG CAP PO SCH (22:56)
[2024-09-04] MEDS: KETOROLAC 30 MG/ML 1ML VIAL IV PRN (22:56)
[2024-09-05] MEDS: BACLOFEN 10 MG TAB PO ONE (01:03)
[2024-09-05 07:43] LABS: HEMATOCRIT 31.8 % (42.0-52.0); MEAN CORPUSCULAR HEMOGLOBIN 35.6 pg (27.0-33.0); MEAN CORPUSCULAR HGB CONC 34.6 g/dl (32.0-36.5); MEAN CORPUSCULAR VOLUME 102.9 fl (80.0-96.0); RED BLOOD COUNT 3.09 10^6/uL (4.30-6.10); WHITE BLOOD COUNT 2.4 10^3/uL (4.0-10.0)
[2024-09-05 07:48] LABS: PLATELET COUNT, AUTOMATED 49 10^3/uL (150-450)
[2024-09-05 08:13] LABS: ALBUMIN 3.2 G/DL (3.2-5.2); ALKALINE PHOSPHATASE 98 U/L (40-129); ALT/SGPT 40 U/L (7.0-40); AST/SGOT 83 U/L (<34); BILIRUBIN,TOTAL 1.2 MG/DL (0.3-1.2); BLOOD UREA NITROGEN 14 MG/DL (9-23); CALCIUM LEVEL 7.6 MG/DL (8.3-10.6); CARBON DIOXIDE LEVEL 26 MMOL/L (20-31); CHLORIDE LEVEL 100 MMOL/L (98-107); CREATININE FOR GFR 0.62 MG/DL (0.70-1.30); GLOMERULAR FILTRATION RATE > 60.0 (>49); GLUCOSE, FASTING 131 MG/DL (74-106); POTASSIUM SERUM 4.1 MMOL/L (3.5-5.1); SODIUM LEVEL 138 MMOL/L (136-145); TOTAL PROTEIN 6.8 G/DL (5.7-8.2)
[2024-09-05] MEDS: CitaloPRAM (CeleXA) 20 MG TAB PO SCH (08:41)
[2024-09-05] MEDS: MULTIVITAMINS/MINERALS THERAP 1 TAB PO SCH (08:41)
[2024-09-05] MEDS: CALCIUM GLUCONATE 1,000 MG in DEXTROSE 5% (D5W) MINI-BAG PLU 100 ML IV ONE (08:41)
[2024-09-05] MEDS: THIAMINE 200MG 2ML VIAL IV SCH (08:41)
[2024-09-05] MEDS: OXAZEPAM 10MG CAP PO SCH (08:41)
[2024-09-05] MEDS: FOLIC ACID 1MG TAB PO SCH (08:41)
[2024-09-05 08:58] VITALS: BP 133/73
[2024-09-05] MEDS ORDERED: THIAMINE 100 MG TAB PO SCH ×2 (09:00)
[2024-09-05] MEDS ORDERED: FOLIC ACID 1MG TAB PO SCH (09:00)
[2024-09-05] MEDS ORDERED: ENOXAPARIN 40MG/0.4ML SYRINGE (J1650 PER 10MG) SC SCH (09:00)
[2024-09-05 12:12] VITALS: BP 137/87; TEMP 99.3; O2SAT 94
[2024-09-05] MEDS ORDERED: MORPHINE 4 MG/ML 1ML VIAL IV PRN (15:00)
[2024-09-05 15:22] LABS: PROCALCITONIN 0.08 ng/ml
[2024-09-05 15:50] LABS: SOURCE PERIPHERAL SMEAR
[2024-09-05] MEDS: CYANOCOBALAMIN 1,000MCG/ML 1ML VIAL IM SCH (16:03)
[2024-09-05 18:25] VITALS: BP 140/68
[2024-09-06] MEDS: MORPHINE 2 MG/ML 1ML VIAL IV PRN (06:32)
[2024-09-06 06:46] LABS: HEMATOCRIT 33.5 % (42.0-52.0); HEMOGLOBIN 11.9 g/dl (13.5-17.5); MEAN CORPUSCULAR HEMOGLOBIN 36.2 pg (27.0-33.0); MEAN CORPUSCULAR HGB CONC 35.5 g/dl (32.0-36.5); MEAN CORPUSCULAR VOLUME 101.8 fl (80.0-96.0); RED BLOOD COUNT 3.29 10^6/uL (4.30-6.10)
[2024-09-06 06:52] LABS: PLATELET COUNT, AUTOMATED 52 10^3/uL (150-450)
[2024-09-06 07:07] LABS: ALBUMIN 3.6 G/DL (3.2-5.2); ALKALINE PHOSPHATASE 117 U/L (40-129); ALT/SGPT 37 U/L (7.0-40); AST/SGOT 73 U/L (<34); BILIRUBIN,TOTAL 1.6 MG/DL (0.3-1.2); BLOOD UREA NITROGEN 11 MG/DL (9-23); CALCIUM LEVEL 8.7 MG/DL (8.3-10.6); CARBON DIOXIDE LEVEL 27 MMOL/L (20-31); CHLORIDE LEVEL 100 MMOL/L (98-107); CREATININE FOR GFR 0.53 MG/DL (0.70-1.30); GLOMERULAR FILTRATION RATE > 60.0 (>49); GLUCOSE, FASTING 112 MG/DL (74-106); SODIUM LEVEL 137 MMOL/L (136-145); TOTAL PROTEIN 7.8 G/DL (5.7-8.2)
[2024-09-06] MEDS: KETOROLAC 30 MG/ML 1ML VIAL IV ONE (08:48)
[2024-09-06] MEDS: PANTOPRAZOLE 40MG VIAL IV SCH (08:49)
[2024-09-06] MEDS: CYCLOBENZAPRINE 10MG TABLET PO PRN (08:50)
[2024-09-06] MEDS: ASPIRIN 81MG ENTERIC TABLET PO SCH (12:24)
[2024-09-06] MEDS: methylPREDNISolone 125MG 2ML VIAL IV ONE (12:25)
[2024-09-06] MEDS: MORPHINE 4 MG/ML 1ML VIAL IV PRN (12:26)
[2024-09-06] MEDS: ACETAMINOPHEN 325 MG TAB PO SCH (13:50)
[2024-09-06 14:00] VITALS: BP 119/78
[2024-09-06] MEDS ORDERED: MORPHINE 2 MG/ML 1ML VIAL IV PRN (15:00)
[2024-09-06 20:00] VITALS: BP 125/88; TEMP 98.6; O2SAT 94
[2024-09-07 04:00] VITALS: BP 125/86; TEMP 98.8; O2SAT 96
[2024-09-07 05:23] LABS: HEMATOCRIT 31.4 % (42.0-52.0); HEMOGLOBIN 10.8 g/dl (13.5-17.5); MEAN CORPUSCULAR HEMOGLOBIN 35.1 pg (27.0-33.0); MEAN CORPUSCULAR HGB CONC 34.4 g/dl (32.0-36.5); MEAN CORPUSCULAR VOLUME 101.9 fl (80.0-96.0); RED BLOOD COUNT 3.08 10^6/uL (4.30-6.10); WHITE BLOOD COUNT 3.9 10^3/uL (4.0-10.0)
[2024-09-07 05:26] LABS: PLATELET COUNT, AUTOMATED 58 10^3/uL (150-450)
[2024-09-07 05:48] LABS: ALBUMIN 3.4 G/DL (3.2-5.2); ALKALINE PHOSPHATASE 112 U/L (40-129); ALT/SGPT 34 U/L (7.0-40); AST/SGOT 56 U/L (<34); BILIRUBIN,TOTAL 1.3 MG/DL (0.3-1.2); BLOOD UREA NITROGEN 15 MG/DL (9-23); CALCIUM LEVEL 8.1 MG/DL (8.3-10.6); CARBON DIOXIDE LEVEL 26 MMOL/L (20-31); CHLORIDE LEVEL 102 MMOL/L (98-107); CREATININE FOR GFR 0.57 MG/DL (0.70-1.30); GLOMERULAR FILTRATION RATE > 60.0 (>49); GLUCOSE, FASTING 124 MG/DL (74-106); SODIUM LEVEL 137 MMOL/L (136-145); TOTAL PROTEIN 7.3 G/DL (5.7-8.2)
[2024-09-07 11:56] VITALS: BP 113/75
[2024-09-07 12:00] VITALS: BP 109/75; TEMP 97.7; O2SAT 97
[2024-09-07 20:00] VITALS: BP 108/75; TEMP 98.1; O2SAT 98
[2024-09-08 04:00] VITALS: BP 109/75; TEMP 98.1; O2SAT 97
[2024-09-08 06:49] LABS: BASO % 0.7 % (0.0-1.0); EOS # 0.1 10^3/uL (0.0-0.5); EOS % 1.4 % (0.0-3.0); HEMATOCRIT 30.8 % (42.0-52.0); HEMOGLOBIN 10.5 g/dl (13.5-17.5); LYMPH # 1.2 10^3/uL (1.5-5.0); LYMPH % 26.8 % (24.0-44.0); MEAN CORPUSCULAR HEMOGLOBIN 35.8 pg (27.0-33.0); MEAN CORPUSCULAR HGB CONC 34.1 g/dl (32.0-36.5); MEAN CORPUSCULAR VOLUME 105.1 fl (80.0-96.0); MONO # 0.4 10^3/uL (0.0-0.8); MONO % 8.8 % (2.0-8.0); NEUTROPHILS # 2.7 10^3/uL (1.5-8.5); NEUTROPHILS % 61.6 % (36.0-66.0); RED BLOOD COUNT 2.93 10^6/uL (4.30-6.10); WHITE BLOOD COUNT 4.3 10^3/uL (4.0-10.0)
[2024-09-08 06:55] LABS: PLATELET COUNT, AUTOMATED 81 10^3/uL (150-450)
[2024-09-08 07:22] LABS: BLOOD UREA NITROGEN 17 MG/DL (9-23); CALCIUM LEVEL 8.9 MG/DL (8.3-10.6); CARBON DIOXIDE LEVEL 29 MMOL/L (20-31); CHLORIDE LEVEL 104 MMOL/L (98-107); GLOMERULAR FILTRATION RATE > 60.0 (>49); GLUCOSE, FASTING 106 MG/DL (74-106); POTASSIUM SERUM 4.9 MMOL/L (3.5-5.1); SODIUM LEVEL 138 MMOL/L (136-145)
[2024-09-08] MEDS: KETOROLAC 30 MG/ML 1ML VIAL IV PRN (11:23)
[2024-09-08 12:00] VITALS: BP 110/75; TEMP 98.1; O2SAT 95
[2024-09-08 17:50] VITALS: BP 110/75
[2024-09-08 20:00] VITALS: BP 108/75
[2024-09-08 21:00] VITALS: BP 108/58; TEMP 98.1; O2SAT 97
[2024-09-09 04:30] VITALS: BP 112/70; TEMP 98.1; O2SAT 97
[2024-09-09 05:11] LABS: BASO % 1.3 % (0.0-1.0); EOS # 0.1 10^3/uL (0.0-0.5); EOS % 2.5 % (0.0-3.0); HEMATOCRIT 30.1 % (42.0-52.0); HEMOGLOBIN 10.3 g/dl (13.5-17.5); LYMPH % 31.2 % (24.0-44.0); MEAN CORPUSCULAR HEMOGLOBIN 35.9 pg (27.0-33.0); MEAN CORPUSCULAR HGB CONC 34.2 g/dl (32.0-36.5); MEAN CORPUSCULAR VOLUME 104.9 fl (80.0-96.0); MONO # 0.4 10^3/uL (0.0-0.8); MONO % 13.1 % (2.0-8.0); NEUTROPHILS # 1.6 10^3/uL (1.5-8.5); NEUTROPHILS % 51.9 % (36.0-66.0); PLATELET COUNT, AUTOMATED 103 10^3/uL (150-450); RED BLOOD COUNT 2.87 10^6/uL (4.30-6.10); WHITE BLOOD COUNT 3.1 10^3/uL (4.0-10.0)
[2024-09-09 05:39] LABS: BLOOD UREA NITROGEN 18 MG/DL (9-23); CALCIUM LEVEL 8.6 MG/DL (8.3-10.6); CARBON DIOXIDE LEVEL 28 MMOL/L (20-31); CHLORIDE LEVEL 102 MMOL/L (98-107); CREATININE FOR GFR 0.67 MG/DL (0.70-1.30); GLOMERULAR FILTRATION RATE > 60.0 (>49); GLUCOSE, FASTING 103 MG/DL (74-106); POTASSIUM SERUM 4.4 MMOL/L (3.5-5.1); SODIUM LEVEL 140 MMOL/L (136-145)
== END 2024-09-09 12:52 | disposition home or self-care (01) | DRG 536 ==
LOC: EDBD 06:21 → M ED 06:21 → M ED INP 19:31 → M MSPAV 09-06 13:35
PROVIDERS: ADMIT Student in an Organized Health Care Education/Training Program; ATTEND Student in an Organized Health Care Education/Training Program
DX: S72.112A Displaced fracture of greater trochanter of left femur, initial encounter for closed fracture (principal); M97.02XA Periprosthetic fracture around internal prosthetic left hip joint, initial encounter; S00.83XA Contusion of other part of head, initial encounter; F32.A Depression, unspecified; K74.60 Unspecified cirrhosis of liver; W18.12XA Fall from or off toilet with subsequent striking against object, initial encounter; Y92.009 Unspecified place in unspecified non-institutional (private) residence as the place of occurrence of the external cause; M54.50 Low back pain, unspecified; E83.51 Hypocalcemia; R01.1 Cardiac murmur, unspecified; R07.89 Other chest pain; F10.929 Alcohol use, unspecified with intoxication, unspecified; I95.9 Hypotension, unspecified; R91.8 Other nonspecific abnormal finding of lung field; D69.6 Thrombocytopenia, unspecified; Z79.899 Other long term (current) drug therapy; Z88.1 Allergy status to other antibiotic agents; Z96.642 Presence of left artificial hip joint; Z85.46 Personal history of malignant neoplasm of prostate

== ENCOUNTER → 2024-11-12 | Outpatient (REF) | payer MEDICARE ==
[~2024-11-12] MED LIST changes: +CLON1TAB8 PO; +METRCRM TOP; +NAPR220C14 PO
[2024-11-12 16:54] LABS: HEMATOCRIT 40.4 % (42.0-52.0); HEMOGLOBIN 13.5 g/dl (13.5-17.5); MEAN CORPUSCULAR HGB CONC 33.4 g/dl (32.0-36.5); MEAN CORPUSCULAR VOLUME 104.7 fl (80.0-96.0); PLATELET COUNT, AUTOMATED 147 10^3/uL (150-450); RED BLOOD COUNT 3.86 10^6/uL (4.30-6.10); WHITE BLOOD COUNT 5.1 10^3/uL (4.0-10.0)
[2024-11-12 16:57] LABS: INR 1.05
[2024-11-12 17:14] LABS: ALBUMIN 3.6 G/DL (3.2-5.2); ALKALINE PHOSPHATASE 121 U/L (40-129); ALT/SGPT 21 U/L (7.0-40); AST/SGOT 25 U/L (<34); BILIRUBIN,TOTAL 0.5 MG/DL (0.3-1.2); BLOOD UREA NITROGEN 14 MG/DL (9-23); CARBON DIOXIDE LEVEL 30 MMOL/L (20-31); CHLORIDE LEVEL 103 MMOL/L (98-107); GLOMERULAR FILTRATION RATE > 60.0 (>49); GLUCOSE, FASTING 70 MG/DL (74-106); IRON (FE) 119 UG/DL (65-175); PERCENT SATURATION 32.8 % (19.7-50.0); POTASSIUM SERUM 4.8 MMOL/L (3.5-5.1); SODIUM LEVEL 141 MMOL/L (136-145); TOTAL IRON BINDING CAPACITY 363 UG/DL (250-425); TOTAL PROTEIN 7.6 G/DL (5.7-8.2)
[2024-11-12 17:17] LABS: FERRITIN 56.1 NG/ML (10.5-307.3)
== END ==
LOC: M SFHCADAM 14:37
PROVIDERS: ATTEND Family Medicine
DX: K70.30 Alcoholic cirrhosis of liver without ascites (principal); D61.818 Other pancytopenia; Z14.8 Genetic carrier of other disease

== ENCOUNTER → 2025-02-24 | Outpatient (CLI) | payer MEDICARE ==
[2025-02-24 15:14] LABS: BASO # 0.0 10^3/uL (0.0-0.2); BASO % 1.0 % (0.0-1.0); EOS # 0.1 10^3/uL (0.0-0.5); EOS % 2.0 % (0.0-3.0); LYMPH # 1.3 10^3/uL (1.5-5.0); LYMPH % 43.9 % (24.0-44.0); MONO # 0.5 10^3/uL (0.0-0.8); MONO % 15.5 % (2.0-8.0); NEUTROPHILS # 1.1 10^3/uL (1.5-8.5); NEUTROPHILS % 37.3 % (36.0-66.0); PLATELET COUNT, AUTOMATED 145 10^3/uL (150-450)
[2025-02-24 15:16] LABS: ALT/SGPT 50 U/L (7.0-40); AST/SGOT 70 U/L (<34); CALCIUM LEVEL 9.9 MG/DL (8.3-10.6); CARBON DIOXIDE LEVEL 29 MMOL/L (20-31); CHLORIDE LEVEL 100 MMOL/L (98-107); CREATININE FOR GFR 0.70 MG/DL (0.70-1.30); GLOMERULAR FILTRATION RATE > 90.0 (>49); INR 1.06; POTASSIUM SERUM 5.8 MMOL/L (3.5-5.1); PROSTATIC SPECIFIC AG MONITOR 4.86 NG/ML (< 4.00); SODIUM LEVEL 139 MMOL/L (136-145)
== END ==
LOC: M PLALAB 11:43
PROVIDERS: ATTEND Family Medicine
DX: K70.30 Alcoholic cirrhosis of liver without ascites (principal); D61.818 Other pancytopenia; R77.2 Abnormality of alphafetoprotein; Z85.46 Personal history of malignant neoplasm of prostate

== ENCOUNTER → 2025-06-02 | Outpatient (REF) | payer MEDICARE ==
[2025-06-02 17:34] LABS: INR 1.03; PLATELET COUNT, AUTOMATED 95 10^3/uL (150-450)
[2025-06-02 17:43] LABS: ALT/SGPT 97 U/L (7.0-40); AST/SGOT 205 U/L (<34); CALCIUM LEVEL 8.8 MG/DL (8.3-10.6); CARBON DIOXIDE LEVEL 32 MMOL/L (20-31); CHLORIDE LEVEL 98 MMOL/L (98-107); CREATININE FOR GFR 0.75 MG/DL (0.70-1.30); FREE T4 0.92 NG/DL (0.89-1.76); GLOMERULAR FILTRATION RATE > 90.0 (>49); POTASSIUM SERUM 4.8 MMOL/L (3.5-5.1); SODIUM LEVEL 140 MMOL/L (136-145); TOTAL 25(OH) VITAMIN D 37.3 NG/ML (20.0-100.0)
== END ==
LOC: M SFHCADAM 12:30
PROVIDERS: ATTEND Family Medicine
DX: K70.30 Alcoholic cirrhosis of liver without ascites (principal); Z14.8 Genetic carrier of other disease; M85.80 Other specified disorders of bone density and structure, unspecified site; F41.1 Generalized anxiety disorder; D64.9 Anemia, unspecified

== ENCOUNTER → 2025-07-15 | Outpatient (REF) | payer MEDICARE ==
[~2025-07-15] MED LIST changes: +MELA10TA22 PO; -RA M10TA PO
[2025-07-15 16:49] LABS: PLATELET COUNT, AUTOMATED 96 10^3/uL (150-450)
[2025-07-15 16:57] LABS: ALT/SGPT 57 U/L (7.0-40); AST/SGOT 94 U/L (<34); CALCIUM LEVEL 8.8 MG/DL (8.3-10.6); CARBON DIOXIDE LEVEL 32 MMOL/L (20-31); CHLORIDE LEVEL 98 MMOL/L (98-107); CREATININE FOR GFR 0.66 MG/DL (0.70-1.30); GLOMERULAR FILTRATION RATE > 90.0 (>49); POTASSIUM SERUM 4.5 MMOL/L (3.5-5.1); SODIUM LEVEL 141 MMOL/L (136-145)
[2025-07-15 17:09] LABS: INR 0.94
== END ==
LOC: M SFHCDERM 13:32
PROVIDERS: ATTEND Family Medicine
DX: K70.30 Alcoholic cirrhosis of liver without ascites (principal)